=== PATIENT | female | born 1960 | race Caucasian/White ===

== ENCOUNTER 2017-07-21 15:07 | Emergency (ER) | payer OTHER ==
[~2017-07-21] VITALS: Ht 165.1 cm; Wt 65.0 kg
[2017-07-21 15:11] VITALS: BP 136/88; PULSE 103; RESP 20; TEMP 98; O2SAT 98
[2017-07-21 15:30] VITALS: O2SAT 99
[2017-07-21 15:47] LABS: AUTOMATED NEUTROPHIL # 5.5 TH/MM3 (1.8-7.7); BASOPHIL # 0.1 TH/MM3 (0-0.2); BASOPHIL % 0.8 % (0.0-2.0); EOSINOPHIL # 0.1 TH/MM3 (0-0.4); EOSINOPHIL % 1.5 % (0.0-4.0); HEMATOCRIT 41.5 % (35.0-46.0); HEMO FLAGS DIFF FINAL; LYMPH % 17.4 % (9.0-44.0); LYMPHOCYTE # 1.4 TH/MM3 (1.0-4.8); MEAN CELL VOLUME 88.1 FL (80.0-100.0); MEAN CORPUSCULAR HEMOGLOBIN 30.1 PG (27.0-34.0); MEAN CORPUSCULAR HGB CONC 34.2 % (32.0-36.0); MONO % 8.4 % (0.0-8.0); NEUT % 71.9 % (16.0-70.0); PLATELET COUNT 299 TH/MM3 (150-450); RED BLOOD COUNT 4.72 MIL/MM3 (4.00-5.30); WHITE BLOOD COUNT 7.8 TH/MM3 (4.0-11.0)
[2017-07-21 15:54] LABS: CHLORIDE 101 MEQ/L (98-107); POTASSIUM 3.4 MEQ/L (3.5-5.1); SODIUM (NA) 135 MEQ/L (136-145)
--- NOTE | 2017-07-21 15:55 | PD ---
HPI Chief Complaint: Abdominal Pain Time Seen by Provider: 15:52 Travel History International Travel<30 days: No Contact w/Intl Traveler<30days: No Traveled to known affect area: No History of Present Illness HPI patient is a 57-year-old female who was sent here by urgent care physician for concerns about gallbladder disease. The patient has been having intermittent abdominal pain nausea and vomiting since May of this year. She also endorses losing to dress sizes over the past few months which she attributes to starting a new job. The patient states she does not have a primary care physician and went to an urgent care facility today and she had an ultrasound this afternoon which showed that she had multiple lesions in her liver as well as dilated common bile duct and multiple stones suggestive of chronic cholecystitis. Patient was referred here emergently by the urgent care center for further evaluation. Patient has not had a checkup in many years. Patient states symptoms on and off all summer but she started having severe nausea 4 days ago which is been intermittent and currently she feels fairly well. Symptoms are moderate, intermittent, currently mild, present in her generalized abdomen. PFSH Past Medical History Medical History: Denies Significant Hx Influenza Vaccination: No ?: Not Menopausal: Yes Past Surgical History Surgical History: No Previous Surgery Social History Alcohol Use: Yes (OCASS WINE) Tobacco Use: No Substance Use: No Allergies-Medications (Allergen,Severity, Reaction): Coded Allergies: No Known Allergies (Unverified , 07/21/17) Reported Meds & Prescriptions Reported Meds & Active Scripts Active No Active Prescriptions or Reported Medications Review of Systems Except as stated in HPI: all other systems reviewed are Neg Physical Exam Narrative GENERAL: Well-developed well-nourished in no obvious distress, appears older than stated age. SKIN: Focused skin assessment warm/dry. HEAD: Atraumatic. Normocephalic. EYES: Pupils equal and round. No scleral icterus. No injection or drainage. ENT: No nasal bleeding or discharge. Mucous membranes pink and moist. NECK: Trachea midline. No JVD. CARDIOVASCULAR: Regular rate and rhythm. No murmur appreciated. RESPIRATORY: No accessory muscle use. Clear to auscultation. Breath sounds equal bilaterally. GASTROINTESTINAL: Abdomen soft, non-tender, nondistended. Hepatic and splenic margins not palpable. No rebound no percussive tenderness, White sign negative. MUSCULOSKELETAL: No obvious deformities. No clubbing. No cyanosis. No edema. NEUROLOGICAL: Awake and alert. No obvious cranial nerve deficits. Motor grossly within normal limits. Normal speech. PSYCHIATRIC: Appropriate mood and affect; insight and judgment normal. Data Data Last Documented VS Vital Signs Date Time Temp Pulse Resp B/P (MAP) Pulse Ox O2 Delivery O2 Flow Rate FiO2 07/21/17 15:30 99 Room Air 07/21/17 15:11 98.0 103 20 136/88 (104) Orders Orders Complete Blood Count With Diff (07/21/17) Comprehensive Metabolic Panel (07/21/17) Lipase (07/21/17) Prothrombin Time / Inr (Pt) (07/21/17) Act Partial Throm Time (Ptt) (07/21/17) Urinalysis - C+S If Indicated (07/21/17) Iv Access Insert/Monitor (07/21/17) Ecg Monitoring (07/21/17) Oximetry (07/21/17) Electrocardiogram (07/21/17) Labs Laboratory Tests Test 07/21/17 15:41 White Blood Count 7.8 TH/MM3 Red Blood Count 4.72 MIL/MM3 Hemoglobin 14.2 GM/DL Hematocrit 41.5 % Mean Corpuscular Volume 88.1 FL Mean Corpuscular Hemoglobin 30.1 PG Mean Corpuscular Hemoglobin Concent 34.2 % Red Cell Distribution Width 13.0 % Platelet Count 299 TH/MM3 Mean Platelet Volume 7.2 FL Neutrophils (%) (Auto) 71.9 % Lymphocytes (%) (Auto) 17.4 % Monocytes (%) (Auto) 8.4 % Eosinophils (%) (Auto) 1.5 % Basophils (%) (Auto) 0.8 % Neutrophils # (Auto) 5.5 TH/MM3 Lymphocytes # (Auto) 1.4 TH/MM3 Monocytes # (Auto) 0.7 TH/MM3 Eosinophils # (Auto) 0.1 TH/MM3 Basophils # (Auto) 0.1 TH/MM3 CBC Comment DIFF FINAL Differential Comment MDM Medical Decision Making Medical Screen Exam Complete: Yes Emergency Medical Condition: Yes Differential Diagnosis Chronic cholecystitis, nausea, abdominal pain, dehydration, pancreatitis, abdominal malignancy. Narrative Course Patient roomed emerged permit, offered pain medicine and declined, she appears well in no distress. Basic labs and CAT scan of her abdomen was ordered, will be discussed with Dr. Pennington to follow-up workup and disposition the patient appropriately. Scripts No Active Prescriptions or Reported Meds Ned Mo MD Jul 21, 2017 15:55
[2017-07-21 15:58] LABS: ANION GAP 10 MEQ/L (5-15); BICARBONATE 24.5 MEQ/L (21.0-32.0); BLOOD UREA NITROGEN 11 MG/DL (7-18)
[2017-07-21 15:59] LABS: APTT (PATIENT) 26.6 SEC (24.3-30.1); PROTHROMBIN TIME - PATIENT 10.6 SEC (9.8-11.6)
[2017-07-21 16:01] LABS: ALT (GPT) 52 U/L (10-53); AST (GOT) 38 U/L (15-37); GLOMERULAR FILTRATION RATE 57 ML/MIN (>89)
[2017-07-21 16:02] LABS: TOTAL BILIRUBIN ADULT 0.5 MG/DL (0.2-1.0)
[2017-07-21 16:04] LABS: ALKALINE PHOSPHATASE 240 U/L (45-117)
[2017-07-21 17:04] LABS: GLUCOSE,URINE NEG (NEG); KETONE, URINE TRACE mg/dL (NEG); NITRITE,URINE NEG (NEG)
[2017-07-21 17:08] LABS: BLOOD, URINE TRACE (NEG)
--- NOTE | 2017-07-21 17:08 | RADRPT ---
EXAM DATE/TIME: 07/21/2017 16:43 [facility] COMPARISON: No previous studies available for comparison. INDICATIONS : Intermittent right upper quadrant pain and nausea x 2 months. ORAL CONTRAST: No oral contrast ingested. RADIATION DOSE: 7.25 CTDIvol (mGy) MEDICAL HISTORY : None SURGICAL HISTORY : None. ENCOUNTER: Initial ACUITY: 2 months PAIN SCALE: 5/10 LOCATION: Right upper quadrant TECHNIQUE: Volumetric scanning of the abdomen and pelvis was performed. Using automated exposure control and ad justment of the mA and/or kV according to patient size, radiation dose was kept as low as reasonably achievable to obtain optimal diagnostic quality images. DICOM format image data is available electro nically for review and comparison. FINDINGS: LOWER LUNGS: 4 mm nodule is identified in the right lower lobe. The visualized lower lungs are otherwise clear. LIVER: Multiple hypodense lesions are identified the liver ranging in size up to 2 cm. There is no evidence of biliary duct dilatation. Calcified stones are identified in the gallbladder. The distal common yasmani e duct is dilated measuring 9.7 mm. SPLEEN: Normal size without lesion. PANCREAS: Within normal limits. KIDNEYS: Normal in size and shape. There is no mass, stone, or hydronephrosis. ADRENAL GLANDS: Within normal limits. VASCULAR: There is no aortic aneurysm. BOWEL/MESENTERY: Multiple diverticula noted throughout the sigmoid colon. The stomach, small bowel, and colon demonstr ate no acute abnormality. There is no free intraperitoneal air. ABDOMINAL WALL: Within normal limits. RETROPERITONEUM: There is no lymphadenopathy. BLADDER: No wall thickening or mass. REPRODUCTIVE: 1.5 cm cyst is identified in the left adnexa. Small amount of free fluid is seen in the pelvis. INGUINAL: There is no lymphadenopathy or hernia. MUSCULOSKELETAL: Within normal limits for patient age. CONCLUSION: 1. Multiple low density hepatic lesions characteristic of metastatic disease. 2. Cholelithiasis with dilated common bile duct 3. 4 mm right lower lobe nodule 4. Uncomplicated colonic diverticulosis Gagan Hdez MD on July 21, 2017 at 16:59 Board Certified Radiologist. This report was verified electronically.
[2017-07-21 17:09] LABS: MUCUS URINE MANY /lpf (OCC); RBC, URINE 0-3 /hpf (0-3); URINE COLOR YELLOW (YELLW/STRAW)
[2017-07-21 17:10] LABS: COMMENT (UR) CULT NOT INDICATED; CULTURE IF INDICATED CULT NOT INDICATED; SQUAMOUS EPITHELIAL CELL URINE 0-5 /hpf (0-5)
--- NOTE | 2017-07-21 17:18 | PD ---
Physical Exam Date Seen by Provider: Jul 21, 2017 Narrative Care was assumed from Dr. Mo at 4 PM pending further evaluation of abdominal pain. The patient reported abdominal pain which started in May. The pain has waxed and waned. She has developed nausea for the last 4 days. She did not have a primary care provider so presented herself to an urgent care center where she had an outpatient ultrasound. The outpatient ultrasound did show gallstones but also showed old other lesions in her liver. She was subsequently sent here for further evaluation. Data Data Last Documented VS Vital Signs Date Time Temp Pulse Resp B/P (MAP) Pulse Ox O2 Delivery O2 Flow Rate FiO2 07/21/17 15:30 99 Room Air 07/21/17 15:11 98.0 103 20 136/88 (104) Orders Orders Complete Blood Count With Diff (07/21/17:22) Comprehensive Metabolic Panel (07/21/17:22) Lipase (07/21/17:22) Prothrombin Time / Inr (Pt) (07/21/17:) Act Partial Throm Time (Ptt) (07/21/17:22) Urinalysis - C+S If Indicated (07/21/17 15:22) Iv Access Insert/Monitor (07/21/17 15:22) Ecg Monitoring (07/21/17:) Oximetry (07/21/17:) Electrocardiogram (07/21/17 15:22) Ct Abd/Pel W/O Iv Contrast (07/21/17 16:28) Labs Laboratory Tests Test 07/21/17 15:41 07/21/17 16:58 White Blood Count 7.8 TH/MM3 Red Blood Count 4.72 MIL/MM3 Hemoglobin 14.2 GM/DL Hematocrit 41.5 % Mean Corpuscular Volume 88.1 FL Mean Corpuscular Hemoglobin 30.1 PG Mean Corpuscular Hemoglobin Concent 34.2 % Red Cell Distribution Width 13.0 % Platelet Count 299 TH/MM3 Mean Platelet Volume 7.2 FL Neutrophils (%) (Auto) 71.9 % Lymphocytes (%) (Auto) 17.4 % Monocytes (%) (Auto) 8.4 % Eosinophils (%) (Auto) 1.5 % Basophils (%) (Auto) 0.8 % Neutrophils # (Auto) 5.5 TH/MM3 Lymphocytes # (Auto) 1.4 TH/MM3 Monocytes # (Auto) 0.7 TH/MM3 Eosinophils # (Auto) 0.1 TH/MM3 Basophils # (Auto) 0.1 TH/MM3 CBC Comment DIFF FINAL Differential Comment Prothrombin Time 10.6 SEC Prothromb Time International Ratio 1.0 RATIO Activated Partial Thromboplast Time 26.6 SEC Blood Urea Nitrogen 11 MG/DL Creatinine 1.00 MG/DL Random Glucose 109 MG/DL Total Protein 7.3 GM/DL Albumin 3.5 GM/DL Calcium Level 9.2 MG/DL Alkaline Phosphatase 240 U/L Aspartate Amino Transf (AST/SGOT) 38 U/L Alanine Aminotransferase (ALT/SGPT) 52 U/L Total Bilirubin 0.5 MG/DL Sodium Level 135 MEQ/L Potassium Level 3.4 MEQ/L Chloride Level 101 MEQ/L Carbon Dioxide Level 24.5 MEQ/L Anion Gap 10 MEQ/L Estimat Glomerular Filtration Rate 57 ML/MIN Lipase 130 U/L Urine Color YELLOW Urine Turbidity CLEAR Urine pH 6.0 Urine Specific [place] 1.025 Urine Protein NEG mg/dL Urine Glucose (UA) NEG mg/dL Urine Ketones TRACE mg/dL Urine Occult Blood TRACE Urine Nitrite NEG Urine Bilirubin NEG Urine Leukocyte Esterase TRACE Urine RBC 0-3 /hpf Urine WBC 3-5 /hpf Urine Squamous Epithelial Cells 0-5 /hpf Urine Mucus MANY /lpf Microscopic Urinalysis Comment CULT NOT INDICATED MDM Supervised Visit with CYNTHIA: No Narrative Course CT abd/pelvis: 1. Multiple low density hepatic lesions characteristic of metastatic disease. 2. Cholelithiasis with dilated common bile duct 3. 4 mm right lower lobe nodule 4. Uncomplicated colonic diverticulosis CBC & BMP Diagram 07/21/17 15:41 Total Protein 7.3, Albumin 3.5, Calcium Level 9.2, Alkaline Phosphatase 240 H, Aspartate Amino Transf (AST/SGOT) 38 H, Alanine Aminotransferase (ALT/SGPT) 52, Total Bilirubin 0.5 UA neg for infection. This patient does not meet any criteria for inpatient evaluation. This patient has no primary care provider. She has no insurance. She will be referred to the [facility] for outpatient workup. I will place a mandatory referral to oncology and will also give her a referral to surgery. Diagnosis Primary Impression: Cholelithiasis Qualified Codes: K80.10 - Calculus of gallbladder with chronic cholecystitis without obstruction Additional Impression: Lesion of liver Referrals: Ajay Maddox MD 1 week [facility] 1 week Oncologist 1 week Patient Instructions: Cholecystitis (DC), General Instructions, Liver Cancer ( DC) Med/Other Pt SpecificInfo: Prescription(s) given Scripts Ondansetron (Zofran) 4 Mg Tab 4 MG PO Q6HR Y for NAUSEA OR VOMITING, #10 TAB 0 Refills Prov: Loren Pennington MD 07/21/17 Disposition: 01 DISCHARGE HOME Condition: Stable Lroen Pennington MD Jul 21, 2017 17:18
[2017-07-21] MEDS ORDERED: ZOFR4TAB PO (17:20)
[2017-07-21 17:37] VITALS: BP 142/86; PULSE 80; RESP 18; O2SAT 97
--- NOTE | 2017-07-21 18:45 | EKG ---
Date Performed: 07/21/2017 Time Performed: 15:30:34 PTAGE: 57 years EKG: Sinus rhythm NORMAL ECG NO PREVIOUS TRACING DOCTOR: Jaiden Cr Interpretating Date/Time 07/21/2017 18:43:28
== END 2017-07-21 18:00 | disposition home or self-care (01) ==
LOC: PHED 15:07
DX: K80.10 Calculus of gallbladder with chronic cholecystitis without obstruction (principal); K76.9 Liver disease, unspecified; R91.1 Solitary pulmonary nodule; K57.90 Diverticulosis of intestine, part unspecified, without perforation or abscess without bleeding
CPT/HCPCS: 74176; 80053; 81001; 83690; 85025; 85610; 85730; 93005

== ENCOUNTER 2017-08-18 23:57 | Inpatient (IN) | payer OTHER ==
[~2017-08-18] VITALS: Ht 165.1 cm; Wt 67.6 kg
[~2017-08-18 23:57] MED LIST: ZOFR4TAB PO
[2017-08-19] VITALS (13 sets, daily range): BP systolic 110–188; BP diastolic 71–99; PULSE 85–111; RESP 16–22; TEMP 96.9–98.1; O2SAT 96–100
[2017-08-19] MEDS ORDERED: SODIUM CHLORIDE 0.9% FLUSH 10 ML FLUSH IV FLUSH PRN ×2 (02:15→03:45)
[2017-08-19 02:38] LABS: AUTOMATED NEUTROPHIL # 6.8 TH/MM3 (1.8-7.7); BASOPHIL # 0.1 TH/MM3 (0-0.2); BASOPHIL % 0.6 % (0.0-2.0); BLOOD, URINE TRACE (NEG); EOSINOPHIL # 0.1 TH/MM3 (0-0.4); EOSINOPHIL % 1.1 % (0.0-4.0); GLUCOSE,URINE NEG (NEG); HEMATOCRIT 44.5 % (35.0-46.0); KETONE, URINE 40 mg/dL (NEG); LYMPH % 15.5 % (9.0-44.0); LYMPHOCYTE # 1.4 TH/MM3 (1.0-4.8); MEAN CELL VOLUME 87.7 FL (80.0-100.0); MEAN CORPUSCULAR HEMOGLOBIN 29.3 PG (27.0-34.0); MEAN CORPUSCULAR HGB CONC 33.3 % (32.0-36.0); MONO % 7.6 % (0.0-8.0); NEUT % 75.2 % (16.0-70.0); NITRITE,URINE NEG (NEG); PH, URINE 5.5 (5.0-8.5); PLATELET COUNT 392 TH/MM3 (150-450); RED BLOOD COUNT 5.08 MIL/MM3 (4.00-5.30); RED CELL DISTRIBUTION WIDTH 12.3 % (11.6-17.2); WHITE BLOOD COUNT 9.1 TH/MM3 (4.0-11.0)
[2017-08-19 02:44] LABS: URINE COLOR YELLOW (YELLW/STRAW)
[2017-08-19 02:45] LABS: COMMENT (UR) CULT NOT INDICATED; COMMENT2 (UR) MUCOUS PRESENT; CULTURE IF INDICATED CULT NOT INDICATED; RBC, URINE 0-3 /hpf (0-3); SQUAMOUS EPITHELIAL CELL URINE 0-5 /hpf (0-5); WBC, URINE 0-2 /hpf (0-5)
[2017-08-19] MEDS ORDERED: IOHEXOL 350 MG/ML 10 ML VIAL (for RAD DIAG) IVCONTRAST ONE (02:45)
[2017-08-19 02:46] LABS: CHLORIDE 98 MEQ/L (98-107); POTASSIUM 3.7 MEQ/L (3.5-5.1); SODIUM (NA) 132 MEQ/L (136-145)
[2017-08-19 02:50] LABS: ANION GAP 9 MEQ/L (5-15); BICARBONATE 25.5 MEQ/L (21.0-32.0); BLOOD UREA NITROGEN 11 MG/DL (7-18); HEMO FLAGS DIFF FINAL
[2017-08-19 02:53] LABS: ALT (GPT) 59 U/L (10-53); AST (GOT) 47 U/L (15-37); GLOMERULAR FILTRATION RATE 62 ML/MIN (>89)
[2017-08-19 02:54] LABS: TOTAL BILIRUBIN ADULT 0.8 MG/DL (0.2-1.0)
[2017-08-19 02:56] LABS: ALKALINE PHOSPHATASE 430 U/L (45-117)
--- NOTE | 2017-08-19 02:59 | RADRPT ---
EXAM DATE/TIME: 08/19/2017 02:30 [facility] COMPARISON: CT ABDOMEN & PELVIS W/O CONTRAST, July 21, 2017, 16:43. INDICATIONS : Abdominal pain and vomiting X one month IV CONTRAST: 95 cc Omnipaque 350 (iohexol) IV ORAL CONTRAST: No oral contrast ingested. RADIATION DOSE: 5.71 CTDIvol (mGy) MEDICAL HISTORY : None SURGICAL HISTORY : None. ENCOUNTER: Initial ACUITY: 1 month PAIN SCALE: 7/10 LOCATION: abdomen TECHNIQUE: Volumetric scanning of the abdomen and pelvis was performed. Using automated exposure control and ad justment of the mA and/or kV according to patient size, radiation dose was kept as low as reasonably achievable to obtain optimal diagnostic quality images. DICOM format image data is available electro nically for review and comparison. FINDINGS: There is a 4 mm nodule in the right lower lobe. No pleural effusions are identified. There is widespr ead metastatic disease throughout all segments of the liver the largest measuring 4 cm in segment 6. The spleen is normal in size and free of focal defects. There are multiple stones within the gallblad scout without wall thickening or pericholecystic fluid the largest measuring 12 mm. The pancreas demons trates no evidence of mass and there is no dilatation of the pancreatic duct. The right adrenal gland is unremarkable. There is a 1 cm nodule in the left adrenal gland characteristic of metastatic disea se. The kidneys are normal bilaterally without evidence of mass or hydronephrosis. Examination of the pelvis demonstrates no evidence of free fluid or pelvic mass. No abnormally enlarg ed inguinal or retroperitoneal lymph nodes are present. The bladder is unremarkable. 15 mm left ovari an cyst is present. CONCLUSION: 1. Widespread hepatic metastatic disease. No acute process is identified. 2. Cholelithiasis Shaquille Vaz MD on August 19, 2017 at 2:48 Board Certified Radiologist. This report was verified electronically.
--- NOTE | 2017-08-19 03:37 | PD ---
HPI Chief Complaint: Abdominal Pain Time Seen by Provider: 02:00 Travel History International Travel<30 days: No Contact w/Intl Traveler<30days: No Traveled to known affect area: No History of Present Illness HPI The patient is a 57-year-old female that has been complaining of vomiting and upper abdominal pain for one month. Patient last month had a CT scan that showed gallstones and suspicious lesions in the liver that may be metastatic lesions. The patient tried to follow-up with her oncologist but states she has never received a call back from the oncology new patient referral. She comes in [facility] for increasing abdominal pain and vomiting. The pain is in the right upper quadrant and midline epigastrium. Her pain as a 7/10 and sharp pain. PFSH Past Medical History Influenza Vaccination: No ?: Not Menopausal: Yes Past Surgical History Other Surgery: Yes (Cyst removal) Social History Alcohol Use: Yes (OCASS WINE) Tobacco Use: No Substance Use: No Allergies-Medications (Allergen,Severity, Reaction): Coded Allergies: No Known Allergies (Verified Adverse Reaction, Unknown, 08/19/17) Reported Meds & Prescriptions Reported Meds & Active Scripts Active Zofran (Ondansetron HCl) 4 Mg Tab 4 Mg PO Q6HR PRN Review of Systems Except as stated in HPI: all other systems reviewed are Neg Physical Exam Narrative GENERAL: The patient is alert, oriented 3 in moderate apparent distress with her abdominal discomfort. She appears slightly dehydrated. Her vital signs show heart rate of 111 and respirations of 22 but otherwise normal. SKIN: Focused skin assessment warm/dry. HEAD: Atraumatic. Normocephalic. EYES: Pupils equal and round. No scleral icterus. No injection or drainage. ENT: No nasal bleeding or discharge. Mucous membranes pink and moist. NECK: Trachea midline. No JVD. CARDIOVASCULAR: Regular rate and rhythm. No murmur appreciated. RESPIRATORY: No accessory muscle use. Clear to auscultation. Breath sounds equal bilaterally. GASTROINTESTINAL: Abdomen soft, with tenderness to direct palpation in the right upper quadrant, nondistended. Hepatic margin is about 8 cm below the right costal margin and tender. Splenic margins not palpable. MUSCULOSKELETAL: No obvious deformities. No clubbing. No cyanosis. No edema. NEUROLOGICAL: Awake and alert. No obvious cranial nerve deficits. Motor grossly within normal limits. Normal speech. PSYCHIATRIC: Appropriate mood and affect; insight and judgment normal. Data Data Last Documented VS Vital Signs Date Time Temp Pulse Resp B/P (MAP) Pulse Ox O2 Delivery O2 Flow Rate FiO2 08/19/17 02:29 22 97 Room Air 08/19/17 00:45 97.9 111 Orders Orders Complete Blood Count With Diff (08/19/17 02:10) Comprehensive Metabolic Panel (08/19/17 02:10) Lipase (08/19/17 02:10) Urinalysis - C+S If Indicated (08/19/17 02:10) Ct Abd/Pel W Iv Contrast(Rout) (08/19/17 02:10) Iv Access Insert/Monitor (08/19/17 02:10) Ecg Monitoring (08/19/17 02:10) Oximetry (08/19/17 02:10) Sodium Chloride 0.9% Flush (Ns Flush) (08/19/17 02:15) Iohexol 350 Inj (Omnipaque 350 Inj) (08/19/17 02:45) Place In Observation (08/19/17 ) Vital Signs (Adult) Q4H (08/19/17 03:41) Activity Oob Ad Mili (08/19/17 03:41) Diet Regular Basic (08/19/17 Breakfast) Sodium Chloride 0.9% Flush (Ns Flush) (08/19/17 03:45) Sodium Chloride 0.9% Flush (Ns Flush) (08/19/17 09:00) Ondansetron Inj (Zofran Inj) (08/19/17 03:45) Comprehensive Metabolic Panel (08/20/17 06:00) Complete Blood Count With Diff (08/20/17 06:00) Scd Bilateral/Knee High SANJUANA.BID (08/19/17 03:41) Jun Bilateral/Knee High SANJUANA.QSHIFT (08/19/17 03:43) Acetaminophen (Tylenol) (08/19/17 03:45) Morphine Inj (Morphine Inj) (08/19/17 03:45) Oxycodone (Roxicodone) (08/19/17 03:45) Docusate Sodium-Senna (Shereen-Colace) (08/19/17 09:00) Magnesium Hydroxide Liq (Milk Of Magnesi (08/19/17 03:45) Sennosides (Senokot) (08/19/17 03:45) Bisacodyl Supp (Dulcolax Supp) (08/19/17 03:45) Lactulose Liq (Lactulose Liq) (08/19/17 03:45) Morphine Inj (Morphine Inj) (08/19/17 03:45) Ondansetron Inj (Zofran Inj) (08/19/17 03:45) Consult Medical Oncology (08/19/17 ) Labs Laboratory Tests Test 08/19/17 02:30 White Blood Count 9.1 TH/MM3 Red Blood Count 5.08 MIL/MM3 Hemoglobin 14.9 GM/DL Hematocrit 44.5 % Mean Corpuscular Volume 87.7 FL Mean Corpuscular Hemoglobin 29.3 PG Mean Corpuscular Hemoglobin Concent 33.3 % Red Cell Distribution Width 12.3 % Platelet Count 392 TH/MM3 Mean Platelet Volume 7.1 FL Neutrophils (%) (Auto) 75.2 % Lymphocytes (%) (Auto) 15.5 % Monocytes (%) (Auto) 7.6 % Eosinophils (%) (Auto) 1.1 % Basophils (%) (Auto) 0.6 % Neutrophils # (Auto) 6.8 TH/MM3 Lymphocytes # (Auto) 1.4 TH/MM3 Monocytes # (Auto) 0.7 TH/MM3 Eosinophils # (Auto) 0.1 TH/MM3 Basophils # (Auto) 0.1 TH/MM3 CBC Comment DIFF FINAL Differential Comment Urine Color YELLOW Urine Turbidity CLEAR Urine pH 5.5 Urine Specific [place] 1.023 Urine Protein NEG mg/dL Urine Glucose (UA) NEG mg/dL Urine Ketones 40 mg/dL Urine Occult Blood TRACE Urine Nitrite NEG Urine Bilirubin NEG Urine Leukocyte Esterase NEG Urine RBC 0-3 /hpf Urine WBC 0-2 /hpf Urine Squamous Epithelial Cells 0-5 /hpf Urine Bacteria NONE /hpf Microscopic Urinalysis Comment CULT NOT INDICATED Blood Urea Nitrogen 11 MG/DL Creatinine 0.93 MG/DL Random Glucose 96 MG/DL Total Protein 7.9 GM/DL Albumin 3.6 GM/DL Calcium Level 9.4 MG/DL Alkaline Phosphatase 430 U/L Aspartate Amino Transf (AST/SGOT) 47 U/L Alanine Aminotransferase (ALT/SGPT) 59 U/L Total Bilirubin 0.8 MG/DL Sodium Level 132 MEQ/L Potassium Level 3.7 MEQ/L Chloride Level 98 MEQ/L Carbon Dioxide Level 25.5 MEQ/L Anion Gap 9 MEQ/L Estimat Glomerular Filtration Rate 62 ML/MIN Lipase 120 U/L MDM Medical Decision Making Medical Screen Exam Complete: Yes Emergency Medical Condition: Yes Medical Record Reviewed: Yes Interpretation(s) The CBC is normal. The complete metabolic profile shows a GFR of 62, alkaline phosphatase 430, GOT 47 and ALT 59 with a sodium of 132. The lipase is normal. The CT abdomen pelvis shows widespread hepatic metastatic disease, this is gotten considerably worse in the last month. All the hepatic enzymes have increased since the of last month. Differential Diagnosis Cholelithiasis, metastatic disease, electrolyte disorder, intractable pain, intractable vomiting, dehydration Narrative Course The patient has had problems getting an oncologist. In the last month her metastatic lesions in the liver have gotten larger and she has become more symptomatic. All of her liver enzymes have increased. She does appear somewhat dehydrated now. The CT scan particular shows much worsening of these lesions. Impression: Metastatic disease of the liver with intractable pain Physician Communication Physician Communication I discussed the patient with Dr. Mercedes. Diagnosis Primary Impression: Intractable abdominal pain Additional Impression: Metastatic carcinoma to liver Admitting Information Admitting Physician Requests: Admit Yadiel Matt MD Aug 19, 2017 03:37
[2017-08-19] MEDS ORDERED: SENNOSIDES 8.6 MG TAB PO PRN (03:45)
[2017-08-19] MEDS ORDERED: LACTULOSE SYRUP 20 GM/30 ML CUP PO PRN (03:45)
[2017-08-19] MEDS ORDERED: MORPHINE SULFATE 4 MG/ML INJ IV PUSH ONE (03:45)
[2017-08-19] MEDS ORDERED: MORPHINE SULFATE 4 MG/ML INJ IV PUSH PRN (03:45)
[2017-08-19] MEDS ORDERED: ONDANSETRON HCL 4 MG/2 ML VIAL IVP PRN (03:45)
[2017-08-19] MEDS ORDERED: BISACODYL 10 MG SUPP RECTAL PRN (03:45)
[2017-08-19] MEDS ORDERED: ACETAMINOPHEN 325 MG TAB PO PRN (03:45)
[2017-08-19] MEDS ORDERED: ONDANSETRON HCL 4 MG/2 ML VIAL IV ONE (03:45)
[2017-08-19] MEDS ORDERED: MAGNESIUM HYDROXIDE SUSP 30 ML CUP PO PRN (03:45)
[2017-08-19] MEDS ORDERED: MORPHINE SULFATE 2 MG/ML INJ IV PUSH PRN (04:00)
[2017-08-19] MEDS ORDERED: DOCUSATE SODIUM 50 MG/SENNA 8.6 MG TAB PO ONE (10:00)
[2017-08-19] MEDS ORDERED: MAGNESIUM HYDROXIDE SUSP 30 ML CUP PO ONE (10:00)
[2017-08-19] MEDS: SODIUM CHLORIDE 0.9% FLUSH 10 ML FLUSH IV FLUSH SCH ×2 (10:01→20:04)
[2017-08-19] MEDS: DOCUSATE SODIUM 50 MG/SENNA 8.6 MG TAB PO SCH ×2 (10:01→20:05)
[2017-08-19 11:07] LABS: PROTHROMBIN TIME - PATIENT 10.7 SEC (9.8-11.6)
[2017-08-19 13:21] LABS: AUTOMATED NEUTROPHIL # 5.6 TH/MM3 (1.8-7.7); BASOPHIL % 0.4 % (0.0-2.0); EOSINOPHIL # 0.1 TH/MM3 (0-0.4); EOSINOPHIL % 1.4 % (0.0-4.0); HEMATOCRIT 43.9 % (35.0-46.0); HEMO FLAGS DIFF FINAL; LYMPH % 18.8 % (9.0-44.0); LYMPHOCYTE # 1.5 TH/MM3 (1.0-4.8); MEAN CELL VOLUME 87.8 FL (80.0-100.0); MEAN CORPUSCULAR HEMOGLOBIN 28.9 PG (27.0-34.0); MEAN CORPUSCULAR HGB CONC 32.8 % (32.0-36.0); MONO % 9.5 % (0.0-8.0); NEUT % 69.9 % (16.0-70.0); PLATELET COUNT 369 TH/MM3 (150-450); RED CELL DISTRIBUTION WIDTH 12.5 % (11.6-17.2)
[2017-08-19 13:38] LABS: APTT (PATIENT) 28.7 SEC (24.3-30.1)
--- NOTE | 2017-08-19 15:34 | HHI.HP ---
[facility]Staff Admission Diagnosis intractable pain, metastatic liver disease Diagnoses: (1) Metastatic carcinoma to liver Diagnosis: Principal Chief Complaint: Abdominal pain, nausea vomiting Travel History International Travel<30 Days: No Contact w/Intl Traveler <30 Da: No Traveled to Known Affected Are: No History of Present Illness Written by Matt Matt, acting as scribe for Dr. Sahni on 08/19/17 at 15 :23. 57-year-old female with known history of recently diagnosed metastatic liver lesions who presented to hospital because of persistent nausea , vomiting, abdominal pain. This is a rather unfortunate situation, the patient was seen on July 21, 2017 and the emergency department and was found to have metastatic liver lesions, chronic cholecystitis without obstruction. Patient was discharged from the ER with outpatient follow-up with the [facility] as well as mandatory referral to oncology and surgery. Patient has been unable to obtain appointment to oncology for evaluation of her metastatic liver lesions. She has had persistent abdominal pain, weight loss, continued nausea vomiting. She has had no relief of her symptoms and unable to follow-up in outpatient setting, so she returned to the ER for evaluation. Patient has CT scan done of the abdomen which indicated worsening of her metastatic liver lesions. Patient has had persistent abdominal pain that wraps around her right side into her back. She has had continue weight loss. Intermittent nausea vomiting. She vomited last night with green flakes in her vomitus. Because of those reasons it was recommended by ER physician that the patient be observed in the hospital for appropriate consults and management. Review of Systems Gastrointestinal: COMPLAINS OF: Abdominal pain, Nausea, Vomiting Except as stated in HPI: all other systems reviewed are Neg Past Family Social History Past Medical History No chronic medical illnesses Past Surgical History Cyst removed as a child Reported Medications Reported Meds & Active Scripts Active Zofran (Ondansetron HCl) 4 Mg Tab 4 Mg PO Q6HR PRN Allergies: Coded Allergies: No Known Allergies (Verified Allergy, Unknown, 08/19/17) Family History Reviewed is significant for mother at age 68 from cancer, unknown type , they indicate that she was found to have metastatic cancer and within 3 months. Mother also had diabetes Social History Patient states that she smoked when she was a teenager and quit when she was 19 years old. Does drink wine occasionally. Denies any illicit drugs Physical Exam Vital Signs Vital Signs Date Time Temp Pulse Resp B/P (MAP) Pulse Ox O2 Delivery O2 Flow Rate FiO2 08/19/17 12:00 98.1 94 18 121/76 (91) 96 08/19/17 08:00 97.8 92 18 132/71 (91) 99 08/19/17 05:11 87 18 144/94 (111) 98 08/19/17 05:10 97.8 85 20 133/99 (110) 98 08/19/17 04:17 18 08/19/17 03:53 91 20 134/92 (106) 99 Room Air 08/19/17 02:29 22 97 Room Air 08/19/17 02:15 90 20 136/93 (107) 96 Room Air 08/19/17 00:47 90 20 134/96 (109) 100 Room Air 08/19/17 00:45 97.9 111 20 117/83 (94) 99 08/19/17 00:45 20 08/19/17 00:16 97.9 90 22 188/98 (128) 97 08/19/17 00:09 97.9 111 22 117/83 (94) 99 Physical Exam GENERAL: Well-developed, well-nourished, in no acute distress. alert and orientated HEENT: Head is normocephalic without any lesions or masses noted. Facial features are symmetric. Eyes: Pupils equal round reactive to light. Extraocular muscles are intact. Conjunctivae were clear. Oropharyngeal: Pharynx without any erythema edema. Tongue is midline without deviation. Buccal mucosa is moist without any masses or lesions NECK: Supple without any masses. Trachea midline no deviation. No JVD, no bruits are appreciated CARDIAC: Regular rhythm, regular rate. S1/S2 are heard. No murmurs gallops or rubs. LUNGS: Clear to auscultation bilaterally. No wheeze, rhonchi or rales. No use of accessory muscles on inspiration or expiration. ABDOMEN: Soft, nontender. Nondistended. Bowel sounds heard in all 4 quadrants. No organomegaly or masses. Negative rebound, negative guarding EXTREMITIES: No edema, pulses are equal bilaterally. No cyanosis or clubbing NEUROLOGY: Mood mildly anxious and affect appear appropriate. Cranial nerves II through XII grossly intact. Muscle strength 5/5 in upper and lower extremities bilaterally. Deep tendon reflexes are 2+ in upper and lower extremities bilaterally. Laboratory Laboratory Tests Test 08/19/17 02:30 08/19/17 10:40 White Blood Count 9.1 8.0 Red Blood Count 5.08 5.00 Hemoglobin 14.9 14.4 Hematocrit 44.5 43.9 Mean Corpuscular Volume 87.7 87.8 Mean Corpuscular Hemoglobin 29.3 28.9 Mean Corpuscular Hemoglobin Concent 33.3 32.8 Red Cell Distribution Width 12.3 12.5 Platelet Count 392 369 Mean Platelet Volume 7.1 7.7 Neutrophils (%) (Auto) 75.2 69.9 Lymphocytes (%) (Auto) 15.5 18.8 Monocytes (%) (Auto) 7.6 9.5 Eosinophils (%) (Auto) 1.1 1.4 Basophils (%) (Auto) 0.6 0.4 Neutrophils # (Auto) 6.8 5.6 Lymphocytes # (Auto) 1.4 1.5 Monocytes # (Auto) 0.7 0.8 Eosinophils # (Auto) 0.1 0.1 Basophils # (Auto) 0.1 0.0 CBC Comment DIFF FINAL DIFF FINAL Differential Comment Urine Color YELLOW Urine Turbidity CLEAR Urine pH 5.5 Urine Specific [place] 1.023 Urine Protein NEG Urine Glucose (UA) NEG Urine Ketones 40 Urine Occult Blood TRACE Urine Nitrite NEG Urine Bilirubin NEG Urine Leukocyte Esterase NEG Urine RBC 0-3 Urine WBC 0-2 Urine Squamous Epithelial Cells 0-5 Urine Bacteria NONE Microscopic Urinalysis Comment CULT NOT INDICATED Blood Urea Nitrogen 11 Creatinine 0.93 Random Glucose 96 Total Protein 7.9 Albumin 3.6 Calcium Level 9.4 Alkaline Phosphatase 430 Aspartate Amino Transf (AST/SGOT) 47 Alanine Aminotransferase (ALT/SGPT) 59 Total Bilirubin 0.8 Sodium Level 132 Potassium Level 3.7 Chloride Level 98 Carbon Dioxide Level 25.5 Anion Gap 9 Estimat Glomerular Filtration Rate 62 Lipase 120 Prothrombin Time 10.7 Prothromb Time International Ratio 1.0 Activated Partial Thromboplast Time 28.7 Result Diagram: 08/19/17 1040 08/19/17 0230 Imaging Last Impressions Abdomen/Pelvis CT 08/19/17 0210 Signed Impressions: Service Date/Time: Saturday, August 19, 2017 02:30 - CONCLUSION: 1. Widespread hepatic metastatic disease. No acute process is identified. 2. Cholelithiasis MD Nicolas Cerda VTE Risk Assessment Nicolas VTE Risk Assessment: Mod/High Risk (score >= 2) Caprini Risk Assessment Model Point Value = 1 Point Value = 2 Point Value = 3 Point Value = 5 Age 41-60 Minor surgery BMI > 25 kg/m2 Swollen legs Varicose veins or History of unexplained or recurrent spontaneous Oral contraceptives or hormone replacement Sepsis (< 1 month) Serious lung disease, including pneumonia (< 1 month) Abnormal pulmonary function Acute myocardial infarction Congestive heart failure (< 1 month) History of inflammatory bowel disease Medical patient at bed rest Age 61-74 Arthroscopic surgery Major open surgery (> 45 min) Laparoscopic surgery (> 45 min) Malignancy Confined to bed (> 72 hours) Immobilizing plaster cast Central venous access Age >= 75 History of VTE Family history of VTE Factor V Leiden Prothrombin [id number] Lupus anticoagulant Anticardiolipin antibodies Elevated serum homocysteine Heparin-induced thrombocytopenia Other congenital or acquired thrombophilia Stroke (< 1 month) Elective arthroplasty Hip, pelvis, or leg fracture Acute spinal cord injury (< 1 month) Prophylaxis Regimen Total Risk Factor Score Risk Level Prophylaxis Regimen 0-1 Low Early ambulation 2 Moderate Order ONE of the following: *Sequential Compression Device (SCD) *Heparin 5000 units SQ BID 3-4 Higher Order ONE of the following medications: *Heparin 5000 units SQ TID *Enoxaparin/Lovenox 40 mg SQ daily (WT < 150 kg, CrCl > 30 mL/min) *Enoxaparin/Lovenox 30 mg SQ daily (WT < 150 kg, CrCl > 10-29 mL/min) *Enoxaparin/Lovenox 30 mg SQ BID (WT < 150 kg, CrCl > 30 mL/min) AND/OR *Sequential Compression Device (SCD) 5 or more Highest Order ONE of the following medications: *Heparin 5000 units SQ TID (Preferred with Epidurals) *Enoxaparin/Lovenox 40 mg SQ daily (WT < 150 kg, CrCl > 30 mL/min) *Enoxaparin/Lovenox 30 mg SQ daily (WT < 150 kg, CrCl > 10-29 mL/min) *Enoxaparin/Lovenox 30 mg SQ BID (WT < 150 kg, CrCl > 30 mL/min) AND *Sequential Compression Device (SCD) Assessment and Plan Assessment and Plan //Metastatic liver lesions //Abdominal pain //Nausea vomiting - CT scan does show significant metastatic disease in the liver and adrenal glands - Consulted interventional radiology for CT-guided biopsy of the liver lesion - Oncology was consulted who recommended CT scan of the chest - We'll also obtain tumor markers - Continue IV fluids - Continue antiemetics - Continue pain control - Patient with a counseled extensively on starting workup in the hospital with obtaining biopsy, pain control, oncology consultation and appropriate follow-up upon discharge //DVT prevention - Sequential compression devices Discussed Condition With Patient, oncologist, nursing staff, sister at bedside This note was transcribed by james Matt. I, Dr. Celso Sahni personally performed the history, physical exam, and medical decision making; and confirmed the accuracy of the information in the transcribed note. Authenticated by Dr. Celso Sahni on 08/20/17 at 16:40. Matt Matt Aug 19, 2017 15:34 Celso Sahni MD Aug 20, 2017 16:40
--- NOTE | 2017-08-19 18:28 | MB ---
cc: OLIMPIA FOOTE MD DATE OF CONSULTATION: 08/19/2017. REASON FOR CONSULTATION: Multiple liver hypodense lesions concerning for multifocal metastatic disease to the liver. REQUESTING PHYSICIAN: Consult requested by the hospitalist service. CHIEF COMPLAINT: 1. The patient reports a two month history of progressive fatigue and a one month history of increasing abdominal pain and discomfort. 2. Recurrent nausea and vomiting. HISTORY OF PRESENT ILLNESS: Ms. James is a 57-year-old female who reports being in her usual fair state of health up until May of 2017. She reports noticing a vague discomfort in her abdomen which involved the epigastric area and the left and right upper quadrants. She noticed the pain usually when she was standing or lifting objects. She reports noticing an indigestion as well which would result in vomiting. The frequency of vomiting would gradually increase over the next few weeks. Her pain changed from a discomfort to a sharp and burning type pain involving the upper abdomen. Her appetite decreased and she began to lose weight and she also had unintended weight loss. The patient presented to [facility] on July 21, 2017 with similar complaints. At that time, she underwent CT scan of the abdomen and pelvis which was recommended by the ER physician. She was found to have multiple low-density masses within the liver concerning for metastatic disease. She was recommended outpatient evaluation with oncology and was recommended outpatient image-guided biopsies. Due to her insurance status, she was not able to see an oncologist, she was working with [facility] Patient Assistance as well as social security for disability. Over the past 24 hours, her pain worsened and she elected to come back into [facility] for further workup and evaluation. She underwent repeat CT scan of abdomen and pelvis on 08/19/2017 and was found to have extensive hepatic metastatic disease. No definite primary site was identified. The oncology service has been asked to see her for further workup and management. PAST MEDICAL HISTORY: The patient denies any chronic medical comorbid conditions. PAST SURGICAL HISTORY: The patient denies any surgical interventions in her adult life. She does however report having undergone a benign cyst removal when she was an infant from her anterior chest. 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 She reports having had a remote history tobaccoism, she smoked when she was a teenager but has not smoked since her 20s. She denies alcohol. She is single. ALLERGIES: NO KNOWN DRUG ALLERGIES. CURRENT INPATIENT MEDICATIONS: 1. Tylenol 650 milligrams p.o. q. 6 hours. 2. Dulcolax 10 milligrams per rectum for severe constipation. 3. Lactulose 30 mL p.o. daily. 4. Magnesium hydroxide 30 mL p.o. q. 12 hours for constipation. 5. Morphine 2 milligrams IV q. 3 hours as needed for pain. 6. Zofran 4 milligrams IV q. 6 hours as needed for nausea and vomiting. 7. Oxycodone 5 milligrams p.o. q. 4 hours as needed for pain. 8. Senokot 17.2 milligrams p.o. q. 12 hours as needed for constipation. REVIEW OF SYSTEMS: A thirteen-point review of systems was obtained and the following are the pertinent positives: CONSTITUTIONAL: The patient reports loss of appetite, fatigue, weakness, unintended weight loss. HEAD, EYES, EARS, NOSE, THROAT: The patient denies headaches, blurry vision, difficulty swallowing, soreness in the throat. RESPIRATORY: Denies difficulty breathing, cough or hemoptysis. Denies angina-like chest pain, PND, orthopnea. She denies lower extremity swelling. BREASTS: Denies any breast lumps or bumps. UG: No complaints. Denies dysuria, hematuria or urinary incontinence. GASTROINTESTINAL: Reports nausea, vomiting. She reports noting blood-like flakes in her vomitus. She denies hematochezia or melena. She denies abdominal distention. HOME ECONOMICS EXPERT: No complaints. SKIN: No complaints. PHYSICAL EXAMINATION: VITAL SIGNS: Temperature 98.1 degrees Fahrenheit, heart rate 94 beats per minute, respiratory rate 18, blood pressure 121/76, 02 saturation is 96% on room air. GENERAL APPEARANCE: Ms. James is a middle-aged female. She is laying in bed. She appears to be no acute distress. HEAD, EYES, EARS, NOSE, THROAT: Head atraumatic, normocephalic, conjunctive are not pale. Sclerae are anicteric. Extraocular muscles intact. Pupils equal, round and reactive to light and accommodation. Oral exam - no pharyngeal erythema. NECK: No palpable cervical or supraclavicular lymphadenopathy. RESPIRATORY: Good air movement bilaterally over the upper, mid and lower lung zones without any added breath sounds. CARDIOVASCULAR: There is no evidence of murmurs, rubs or gallops. Her heart rate is regular and her rhythm is regular as well. ABDOMINAL EXAM: She has tenderness over the right upper quadrant. The liver is enlarged. Positive bowel sounds. No inguinal lymphadenopathy. LOWER EXTREMITIES: No pretibial edema or calf tenderness. BREAST EXAMINATION: Performed in the presence of a female nursing home physician, the patient was noted to have no skin changes over either breast. There were no masses palpable in either breast. There were no axillary lymph nodes palpable. LOWER EXTREMITIES: No pretibial edema or calf tenderness. HOME ECONOMICS EXPERT: No focal sensory or motor deficits. LABORATORY FINDINGS: Blood work dated 08/19/2017: White blood cell count 8, hemoglobin 14.4 grams/dL, hematocrit 44%, platelet count is 370,000, absolute neutrophil count is 5.6. Chemistry: Sodium 132, potassium is 3.7, chloride is 98, bicarbonate 25.5, BUN 11, creatinine is 0.93, eGFR is 56, total bilirubin 0.8, AST 57, ALT 59, alkaline phosphatase 490, LDH is pending, albumin is 3.6. AFP, CEA, CA 19-9, and CA-125 are pending at this time. IMAGING STUDIES: CT scan of the abdomen and pelvis dated 08/19/2017 with contrast indicates extensive widespread hepatic metastatic disease. Cholelithiasis was also noted. There was a 4 mm nodule in the right lower lobe as well. ASSESSMENT: Ms. James is a 57-year-old female with a three month history of progressive abdominal pain, nausea, loss of appetite, unintended weight loss and fatigue. She was found in mid July of 2017 to have multiple hypodense lesions within the liver concerning for metastatic disease when she presented to the [facility] Emergency Department complaining of abdominal pain. She was recommended outpatient evaluation by oncology for further diagnostic workup and management. She was unable to follow up due to her lack of insurance. Her symptoms unfortunately progressed and she therefore presented to [facility] for further workup and management. Repeat CT scan revealed persistent metastatic disease to the liver. She has now been admitted to the hospital and oncology has been asked to see her for further workup and management. RECOMMENDATIONS: 1. Request image-guided biopsy of one of the hepatic lesions to obtain tissue for pathologic evaluation. 2. Obtain CT scan of the thorax to rule out intrathoracic disease. 3. Request serum tumor markers, CEA, CA19-9 and alpha-fetoprotein. It is my suspicion she likely has an upper GI malignancy / hepatobiliary malignancy. I will also have her CT scan reviewed and evaluated by one of our radiologists to rule out a pancreatic mass. The oncology service will follow along with you. Thank you for allowing us to participate in the care of this patient. MD HEMA Ro/TROY /4:57 PM /6:06 PM
[2017-08-20] VITALS: BP 112/88; PULSE 88; RESP 16; TEMP 96.7; O2SAT 99
[2017-08-20] MEDS: DOCUSATE SODIUM 50 MG/SENNA 8.6 MG TAB PO SCH ×3 (07:21→21:30)
[2017-08-20 07:29] LABS: AUTOMATED NEUTROPHIL # 4.9 TH/MM3 (1.8-7.7); BASOPHIL # 0.1 TH/MM3 (0-0.2); BASOPHIL % 0.9 % (0.0-2.0); CHLORIDE 97 MEQ/L (98-107); EOSINOPHIL # 0.1 TH/MM3 (0-0.4); EOSINOPHIL % 1.8 % (0.0-4.0); HEMATOCRIT 41.5 % (35.0-46.0); HEMO FLAGS DIFF FINAL; LYMPH % 18.7 % (9.0-44.0); LYMPHOCYTE # 1.3 TH/MM3 (1.0-4.8); MEAN CELL VOLUME 88.4 FL (80.0-100.0); MEAN CORPUSCULAR HEMOGLOBIN 29.6 PG (27.0-34.0); MEAN CORPUSCULAR HGB CONC 33.5 % (32.0-36.0); MONO % 7.9 % (0.0-8.0); NEUT % 70.7 % (16.0-70.0); PLATELET COUNT 342 TH/MM3 (150-450); POTASSIUM 4.1 MEQ/L (3.5-5.1); RED CELL DISTRIBUTION WIDTH 12.5 % (11.6-17.2); SODIUM (NA) 133 MEQ/L (136-145)
[2017-08-20 07:36] LABS: ANION GAP 8 MEQ/L (5-15); BICARBONATE 28.3 MEQ/L (21.0-32.0); BLOOD UREA NITROGEN 12 MG/DL (7-18)
[2017-08-20 07:39] LABS: ALT (GPT) 112 U/L (10-53); AST (GOT) 80 U/L (15-37); GLOMERULAR FILTRATION RATE 70 ML/MIN (>89)
[2017-08-20 07:41] LABS: TOTAL BILIRUBIN ADULT 0.7 MG/DL (0.2-1.0)
[2017-08-20 07:42] LABS: ALKALINE PHOSPHATASE 516 U/L (45-117)
[2017-08-20] MEDS: SODIUM CHLORIDE 0.9% FLUSH 10 ML FLUSH IV FLUSH SCH ×2 (08:38→21:30)
[2017-08-20] MEDS ORDERED: IOHEXOL 350 MG/ML 10 ML VIAL (for RAD DIAG) IVCONTRAST ONE (08:45)
[2017-08-20 08:58] VITALS: BP 107/80; PULSE 100; RESP 16; TEMP 98; O2SAT 100
--- NOTE | 2017-08-20 09:15 | HHI.PR ---
Subjective Remarks Patient seen and examined today for follow-up on metastatic liver disease. Awaiting radiology to perform biopsy. Otherwise patient is doing well. Pain is controlled. Objective Vitals Vital Signs Date Time Temp Pulse Resp B/P (MAP) Pulse Ox O2 Delivery O2 Flow Rate FiO2 08/20/17 08:58 98.0 100 16 107/80 (89) 100 08/20/17 00:00 96.7 88 16 112/88 (96) 99 08/19/17 20:00 96.9 95 16 110/84 (93) 97 08/19/17 16:00 97.4 93 18 137/80 (99) 98 08/19/17 12:00 98.1 94 18 121/76 (91) 96 I/O 08/19/17 08/19/17 08/19/17 08/20/17 08/20/17 08/20/17 07:00 15:00 23:00 07:00 15:00 23:00 Intake Total 675 ml 280 ml Balance 675 ml 280 ml Intake Oral 675 ml 280 ml # Voids 3 1 # Bowel Movements 1 0 Result Diagram: 08/20/17 0700 08/20/17 0700 Objective Remarks GENERAL: Well-developed, well-nourished, in no acute distress. alert and orientated HEENT: Head is normocephalic without any lesions or masses noted. Facial features are symmetric. Eyes: Extraocular muscles are intact. Conjunctivae were clear. NECK: Supple without any masses. Trachea midline no deviation. No JVD, CARDIAC: Regular rhythm, regular rate. S1/S2 are heard. No murmurs gallops or rubs. LUNGS: Clear to auscultation bilaterally. No wheeze, rhonchi or rales. No use of accessory muscles on inspiration or expiration. ABDOMEN: Soft, nontender. Nondistended. Bowel sounds heard in all 4 quadrants. No organomegaly or masses. Negative rebound, negative guarding EXTREMITIES: No edema, pulses are equal bilaterally. No cyanosis or clubbing NEUROLOGY: Mood and affect appear appropriate. Cranial nerves II through XII grossly intact. Moving all extremities, speech is clear Urinary Catheter: No Vascular Central Line Catheter: No A/P Assessment and Plan Metastatic liver lesions CT scan does indicate significant metastatic disease to liver and adrenal glands Awaiting CT scan of the chest to evaluate for primary source Awaiting radiology to perform CT-guided biopsy for tissue identification Tumor markers were performed which that show negative AFP, CEA. However significantly elevated CA-15-3, CA-19-9, CA-125 Oncology consulted, awaiting tissue biopsy for further treatment Abdominal pain with Nausea vomiting, resolved Continue IV fluids as patient given IV contrast today Continue antiemetics Continue pain control Patient with a counseled extensively on starting workup in the hospital with obtaining biopsy, pain control, oncology consultation and appropriate follow-up upon discharge DVT prevention Sequential compression devices Discharge Planning Discharge home after biopsy performed by radiology Matt Matt Aug 20, 2017 09:15
--- NOTE | 2017-08-20 09:43 | RADRPT ---
EXAM DATE/TIME: 08/20/2017 08:39 [place] COMPARISON: No previous studies available for comparison. INDICATIONS : Multiple liver lesions. Evaluate for metastatic disease. IV CONTRAST: 75 cc Omnipaque 350 (iohexol) IV RADIATION DOSE: 6.43 CTDIvol (mGy) MEDICAL HISTORY : None SURGICAL HISTORY : None. ENCOUNTER: Initial ACUITY: 1 day PAIN SCALE: 0/10 LOCATION: chest TECHNIQUE: Volumetric scanning of the chest was performed. Using automated exposure control and adjustment of t he mA and/or kV according to patient size, radiation dose was kept as low as reasonably achievable to obtain optimal diagnostic quality images. DICOM format image data is available electronically for review and comparison. Follow-up recommendations for detected pulmonary nodules are based at a minimum on nodule size and pa tient risk factors according to Fleischner Society Guidelines. FINDINGS: LUNGS: Multiple small nodules are identified in the lungs predominantly on the right ranging in size from 3- 4 mm. Several are located along the interlobar fissure and likely represent small lymph nodes. PLEURA: There is no pleural thickening or pleural effusion. MEDIASTINUM: The heart and great vessels demonstrate no acute abnormality. There is no mediastinal or hilar lymph adenopathy. AXILLAE: Within normal limits. No lymphadenopathy. SKELETAL: Within normal limits for patient age. MISCELLANEOUS: Multiple focal lesions are seen throughout the liver. Calcified gallstones are noted. CONCLUSION: 1. Multiple 3-4 mm pulmonary nodules several of which appear to represent small lymph nodes along the interlobar fissure. Early metastatic disease cannot be excluded. 2. Hepatic metastases. 3. Cholelithiasis. 4. No acute cardiopulmonary process or evidence of malignant lymphadenopathy. Gagan Hdez MD on August 20, 2017 at 9:31 Board Certified Radiologist. This report was verified electronically.
[2017-08-20 12:00] VITALS: BP 106/75; PULSE 102; RESP 16; TEMP 97.1; O2SAT 99
[2017-08-20 16:00] VITALS: BP 116/83; PULSE 89; TEMP 98.2; O2SAT 98
[2017-08-20 20:00] VITALS: BP 110/68; PULSE 95; RESP 16; TEMP 98.1; O2SAT 98
[2017-08-21] VITALS: BP 107/63; PULSE 83; RESP 16; TEMP 98.2; O2SAT 99
[2017-08-21 08:00] VITALS: BP 125/91; PULSE 90; RESP 14; TEMP 97.8; O2SAT 98
[2017-08-21] MEDS: DOCUSATE SODIUM 50 MG/SENNA 8.6 MG TAB PO SCH ×2 (08:36→21:10)
[2017-08-21] MEDS: SODIUM CHLORIDE 0.9% FLUSH 10 ML FLUSH IV FLUSH SCH ×2 (08:36→21:09)
--- NOTE | 2017-08-21 11:14 | HHI.PR ---
Subjective Remarks Patient seen and examined today for follow-up on metastatic liver disease. Patient resting carefully in bed. Pain is controlled with medications. Still awaiting radiology to perform biopsy. Objective Vitals Vital Signs Date Time Temp Pulse Resp B/P (MAP) Pulse Ox O2 Delivery O2 Flow Rate FiO2 08/21/17 08:00 97.8 90 14 125/91 (102) 98 08/21/17 00:00 98.2 83 16 107/63 (78) 99 08/20/17 20:00 98.1 95 16 110/68 (82) 98 08/20/17 16:00 98.2 89 116/83 (94) 98 08/20/17 12:00 97.1 102 16 106/75 (85) 99 I/O 08/20/17 08/20/17 08/20/17 08/21/17 08/21/17 08/21/17 07:00 15:00 23:00 07:00 15:00 23:00 Intake Total 280 ml 720 ml 480 ml Balance 280 ml 720 ml 480 ml Intake Oral 280 ml 720 ml 480 ml # Voids 1 4 # Bowel Movements 0 2 Result Diagram: 08/20/17 0700 08/20/17 0700 Objective Remarks GENERAL: Well-developed, well-nourished, in no acute distress. alert and orientated HEENT: Head is normocephalic without any lesions or masses noted. Facial features are symmetric. Eyes: Extraocular muscles are intact. Conjunctivae were clear. NECK: Supple without any masses. Trachea midline no deviation. No JVD, CARDIAC: Regular rhythm, regular rate. S1/S2 are heard. No murmurs gallops or rubs. LUNGS: Clear to auscultation bilaterally. No wheeze, rhonchi or rales. No use of accessory muscles on inspiration or expiration. ABDOMEN: Soft, nontender. Nondistended. Bowel sounds heard in all 4 quadrants. No organomegaly or masses. Negative rebound, negative guarding EXTREMITIES: No edema, pulses are equal bilaterally. No cyanosis or clubbing NEUROLOGY: Mood and affect appear appropriate. Cranial nerves II through XII grossly intact. Moving all extremities, speech is clear Urinary Catheter: No Vascular Central Line Catheter: No A/P Assessment and Plan Metastatic liver lesions CT scan does indicate significant metastatic disease to liver and adrenal glands CT scan of the chest indicates 3-4 mm pulmonary nodules several which appear to represent small lymph nodes along with intralobar fissure. Early metastatic disease cannot be excluded. Awaiting radiology to perform CT-guided biopsy for tissue identification Tumor markers were performed which that show negative AFP, CEA. However significantly elevated CA-15-3, CA-19-9, CA-125 Oncology consulted, awaiting tissue biopsy for further treatment Abdominal pain with Nausea vomiting, resolved Discontinue IV fluids Continue antiemetics Continue pain control Patient with a counseled extensively on starting workup in the hospital with obtaining biopsy, pain control, oncology consultation and appropriate follow-up upon discharge DVT prevention Sequential compression devices Discharge Planning Discharge home after biopsy performed by radiology Matt Matt Aug 21, 2017 11:14
[2017-08-21 12:00] VITALS: BP 130/91; PULSE 93; RESP 14; TEMP 97.9; O2SAT 99
[2017-08-21 16:00] VITALS: BP 132/90; PULSE 67; RESP 14; TEMP 98.1; O2SAT 98
[2017-08-21 20:00] VITALS: BP 111/69; PULSE 95; RESP 16; TEMP 97.6; O2SAT 97
[2017-08-22] VITALS: BP 115/72; PULSE 85; RESP 16; TEMP 97.5; O2SAT 98
[2017-08-22 08:00] VITALS: BP 131/85; PULSE 86; RESP 20; TEMP 98.1; O2SAT 100
[2017-08-22] MEDS ORDERED: LIDOCAINE HCL 1% 30 ML VIAL SQ ONE (09:55)
--- NOTE | 2017-08-22 10:01 | PD.RAD ---
Post Procedure Progress Note Pre Procedure Diagnosis: (1) Metastatic carcinoma to liver Post Procedure Diagnosis: (1) Metastatic carcinoma to liver Procedure Date: Aug 22, 2017 Supervising Radiologist: Tan Poole Estimated blood loss: None Anesthesia: Local, Conscious Sedation Plan of Activity Patient to Unit: PACU Patient Condition: Good Additional Comments: S/P CT guided biopsy of the liver. 2 18 ga core biopsies taken. Pt. tolerated the procedure well. Full dictated report to follow. See PACS Report for procedural detail/treatment Tan Poole MD Aug 22, 2017 10:01
[2017-08-22] MEDS ORDERED: MIDAZOLAM HCL 2 MG/2 ML VIAL IV ONE (10:27)
[2017-08-22] MEDS ORDERED: OXYC1CAP PO ×2 (10:53→18:37)
[2017-08-22] MEDS ORDERED: ZOFR4TAB PO (10:53)
--- NOTE | 2017-08-22 10:54 | HHI.DCPOC ---
Discharge Care Plan Diagnosis: (1) Metastatic carcinoma to liver (2) Intractable abdominal pain Goals to Promote Your Health * To prevent worsening of your condition and complications * To maintain your health at the optimal level Directions to Meet Your Goals Take your medications as prescribed Follow your dietary instruction Follow activity as directed Keep your appointments as scheduled Take your immunizations and boosters as scheduled If your symptoms worsen call your PCP, if no PCP go to Urgent Care Center or Emergency Room Smoking is Dangerous to Your Health. Avoid second hand smoke Call the 24-hour hour crisis hotline for domestic abuse at Matt Matt Aug 22, 2017 10:54
--- NOTE | 2017-08-22 11:16 | HHI.DS ---
Discharge Summary Admission Date Aug 19, 2017 at 16:11 Discharge Date: Aug 22, 2017 Admitting Diagnosis intractable pain, metastatic liver disease (1) Metastatic carcinoma to liver ICD Code: C78.7 - Secondary malignant neoplasm of liver and intrahepatic bile duct Diagnosis: Principal Status: Acute Procedures CT-guided biopsy of the liver Brief History - From Admission Written by Matt Matt, acting as scribe for Dr. Sahni on 08/19/17 at 15 :23. 57-year-old female with known history of recently diagnosed metastatic liver lesions who presented to hospital because of persistent nausea , vomiting, abdominal pain. This is a rather unfortunate situation, the patient was seen on July 21, 2017 and the emergency department and was found to have metastatic liver lesions, chronic cholecystitis without obstruction. Patient was discharged from the ER with outpatient follow-up with the [facility] as well as mandatory referral to oncology and surgery. Patient has been unable to obtain appointment to oncology for evaluation of her metastatic liver lesions. She has had persistent abdominal pain, weight loss, continued nausea vomiting. She has had no relief of her symptoms and unable to follow-up in outpatient setting, so she returned to the ER for evaluation. Patient has CT scan done of the abdomen which indicated worsening of her metastatic liver lesions. Patient has had persistent abdominal pain that wraps around her right side into her back. She has had continue weight loss. Intermittent nausea vomiting. She vomited last night with green flakes in her vomitus. Because of those reasons it was recommended by ER physician that the patient be observed in the hospital for appropriate consults and management. CBC/BMP: 08/20/17 0700 08/20/17 0700 Significant Findings Laboratory Tests Test 08/19/17 16:35 08/20/17 07:00 Lactate Dehydrogenase 349 U/L (84-246) CA 15-3 Antigen 58.3 U/ML (0.0-32.4) CA 19-9 Antigen 90290.4 U/ML (0.0-35.0) CA 125 Antigen 467.0 U/ML (0.0-30.2) Neutrophils (%) (Auto) 70.7 % (16.0-70.0) Albumin 3.3 GM/DL (3.4-5.0) Alkaline Phosphatase 516 U/L (45-117) Aspartate Amino Transf (AST/SGOT) 80 U/L (15-37) Alanine Aminotransferase (ALT/SGPT) 112 U/L (10-53) Sodium Level 133 MEQ/L (136-145) Chloride Level 97 MEQ/L (98-107) Estimat Glomerular Filtration Rate 70 ML/MIN (>89) Imaging Last Impressions Chest CT 08/20/17 0000 Signed Impressions: Service Date/Time: Sunday, August 20, 2017 08:39 - CONCLUSION: 1. Multiple 3-4 mm pulmonary nodules several of which appear to represent small lymph nodes along the interlobar fissure. Early metastatic disease cannot be excluded. 2. Hepatic metastases. 3. Cholelithiasis. 4. No acute cardiopulmonary process or evidence of malignant lymphadenopathy. Gagan Hdez MD Abdomen/Pelvis CT 08/19/17 0210 Signed Impressions: Service Date/Time: Saturday, August 19, 2017 02:30 - CONCLUSION: 1. Widespread hepatic metastatic disease. No acute process is identified. 2. Cholelithiasis Shaquille Vaz MD PE at Discharge GENERAL: Well-developed, well-nourished, in no acute distress. alert and orientated HEENT: Head is normocephalic without any lesions or masses noted. Facial features are symmetric. Eyes: Extraocular muscles are intact. Conjunctivae were clear. NECK: Supple without any masses. Trachea midline no deviation. No JVD, CARDIAC: Regular rhythm, regular rate. S1/S2 are heard. No murmurs gallops or rubs. LUNGS: Clear to auscultation bilaterally. No wheeze, rhonchi or rales. No use of accessory muscles on inspiration or expiration. ABDOMEN: Soft, nontender. Nondistended. Bowel sounds heard in all 4 quadrants. No organomegaly or masses. Negative rebound, negative guarding EXTREMITIES: No edema, pulses are equal bilaterally. No cyanosis or clubbing NEUROLOGY: Mood and affect appear appropriate. Cranial nerves II through XII grossly intact. Moving all extremities, speech is clear Hospital Course 57-year-old female with history of recently diagnosed metastatic liver disease who originally presented to hospital because of persistent nausea , vomiting and abdominal pain. Patient was diagnosed approximately one month ago with abnormal CT of the liver and possible liver metastasis. It was indicated that she was successful and arranging outpatient workup and management. Patient presented to the emergency department because of nausea, vomiting and abdominal pain. Patient was on Zofran, oxycodone with control of her nausea and pain. Patient was evaluated by oncologist. It was recommended patient undergo CT-guided biopsy the liver. Radiology was consulted biopsy was performed today. Patient tolerated treatment in the hospital well. She has appropriate outpatient follow-up this time. Case management has arranged patient care assistance, outpatient follow-up. Patient should follow-up with oncologist for biopsy report in 5-7 days for treatment options. Pt Condition on Discharge: Stable Discharge Disposition: Discharge Home Discharge Time: > 30 minutes Discharge Instructions DIET: Follow Instructions for: As Tolerated, No Restrictions Activities you can perform: Regular-No Restrictions Activities to Avoid: Driving for 24 hrs Follow up Referrals: Oncology/Hematology - 1 Week with Gilson Ireland MD PCP Follow-up - 1 Week New Medications: Oxycodone (Oxycodone) 5 Mg Cap 5 MG PO Q6H PRN for PAIN, #10 CAP 0 Refills Continued Medications: Ondansetron (Zofran) 4 Mg Tab 4 MG PO Q6HR PRN for NAUSEA OR VOMITING, #10 TAB 0 Refills (This prescription has been renewed) Matt Matt Aug 22, 2017 11:16
[2017-08-22 12:00] VITALS: BP 141/88; PULSE 90; RESP 20; TEMP 98.7; O2SAT 100
--- NOTE | 2017-08-22 13:08 | RADRPT ---
EXAM DATE/TIME: 08/22/2017 09:39 [facility] COMPARISON: CT THORAX W CONTRAST, August 20, 2017, 8:39. INDICATIONS : Liver biopsy for liver lesions. SEDATION TIME: 30 minutes BIOPSY SITE: Right liver MEDICATION(S): 1.) 1 mg midazolam (Versed) IV 2.) 50 mcg fentanyl (Sublimaze) IV DEVICE(S): 1.) 18 gauge Temno core biopsy needle MEDICAL HISTORY : None. SURGICAL HISTORY : None. ENCOUNTER: Initial ACUITY: 1 day PAIN SCORE: 0/10 LOCATION: Right liver A total of two core specimen(s) were obtained and sent to the laboratory for pathologic evaluation. PROCEDURE: 1. CT guided liver biopsy. Prior to the procedure informed consent was obtained. Any appropriate prior imaging studies were rev iewed. Using automated exposure control and adjustment of the mA and/or kV according to patient size, radiat ion dose was kept as low as reasonably achievable to obtain optimal diagnostic quality images. DICOM format image data is available electronically for review and comparison. The site was prepped in a sterile fashion. Full sterile technique was used, including cap, mask, patricia rile gloves and gown and a large sterile sheet. Hand hygiene and 2% chlorhexidine and/or betadine/al cohol prep was utilized per protocol for cutaneous antisepsis. The skin and subcutaneous tissues wer e infiltrated with local anesthetic solution. With CT guidance the previously identified target was localized. Biopsy was performed using the presc ribed needle as above. Adequate hemostasis was obtained with compression at the puncture site. Follow-up CT scan reveals no hemorrhage. The patient tolerated the procedure well and there were no complications. The patient was returned to the Radiology Outpatient Unit in stable condition. CONCLUSION: Uncomplicated CT guided biopsy. Tan Poole MD on August 22, 2017 at 13:07 Board Certified Radiologist. This report was verified electronically.
[2017-08-22 16:12] VITALS: BP 138/70; PULSE 96; RESP 20; TEMP 98.7; O2SAT 99
[2017-08-22] MEDS ORDERED: OXYC-392 PO (18:38)
== END 2017-08-22 17:40 | disposition home or self-care (01) | DRG 436 ==
LOC: PHED 23:57 → INTOOBSV 08-19 03:43 → PHEDA 08-19 03:43 → PH3A 08-19 05:02 → OBSVTOIN 08-19 16:11
PROVIDERS: ADMIT Family Medicine; ATTEND Family Medicine
PROC: 0FB03ZX Excision of Liver, Percutaneous Approach, Diagnostic (ICD-10-PCS; principal; 2017-08-22)
DX: C78.7 Secondary malignant neoplasm of liver and intrahepatic bile duct (principal); K80.10 Calculus of gallbladder with chronic cholecystitis without obstruction; C80.1 Malignant (primary) neoplasm, unspecified; G89.3 Neoplasm related pain (acute) (chronic); Z87.891 Personal history of nicotine dependence; R63.4 Abnormal weight loss; R91.8 Other nonspecific abnormal finding of lung field
CPT/HCPCS: 47000; 71260; 74177; 77012; 80053; 81001; 81270; 82105; 82378; 83615; 83690; 85025; 85610; 85730; 86300; 86301; 86304; 86316; 88307; 88341; 88342; 96374; 96375; J2250; J2270; J2405; J3010; Q9967

== ENCOUNTER 2017-09-07 06:07 | Day surgery (SDC) | payer OTHER ==
[~2017-09-07] VITALS: Ht 165.1 cm; Wt 60.5 kg
[~2017-09-07 06:07] MED LIST changes: +OXYC-392 PO
[2017-09-07 06:45] VITALS: BP 141/92; PULSE 98; RESP 20; TEMP 97.5; O2SAT 99
[2017-09-07] MEDS ORDERED: POVIDONE IODINE 5% (ANTISEPSIS KIT) 4 APPLICATIONS EACH NARE SCH (07:00)
[2017-09-07] MEDS ORDERED: ceFAZolin 2 GM PREMIX 50 ML - implanted port/tunneled catheter insertion IV SCH (07:00)
[2017-09-07] MEDS ORDERED: VANCOMYCIN 1000 MG/NS 250 ML - implanted port/tunneled catheter IV SCH ×2 (07:00)
[2017-09-07] MEDS ORDERED: CHLORHEXIDINE GLUCONATE 2 % 1 PACK (2 CLOTHS) TOPICAL SCH (07:00)
[2017-09-07] MEDS ORDERED: SODIUM CHLORIDE 0.9% 1000 ML IV SCH (07:00)
[2017-09-07 07:24] LABS: AUTOMATED NEUTROPHIL # 5.4 TH/MM3 (1.8-7.7); BASOPHIL # 0.1 TH/MM3 (0-0.2); EOSINOPHIL # 0.1 TH/MM3 (0-0.4); EOSINOPHIL % 1.6 % (0.0-4.0); HEMATOCRIT 42.5 % (35.0-46.0); HEMO FLAGS DIFF FINAL; LYMPH % 15.2 % (9.0-44.0); LYMPHOCYTE # 1.1 TH/MM3 (1.0-4.8); MEAN CELL VOLUME 87.7 FL (80.0-100.0); MEAN CORPUSCULAR HEMOGLOBIN 29.8 PG (27.0-34.0); MONO % 8.8 % (0.0-8.0); NEUT % 73.4 % (16.0-70.0); PLATELET COUNT 304 TH/MM3 (150-450); RED BLOOD COUNT 4.85 MIL/MM3 (4.00-5.30); RED CELL DISTRIBUTION WIDTH 13.1 % (11.6-17.2); WHITE BLOOD COUNT 7.3 TH/MM3 (4.0-11.0)
[2017-09-07 07:31] LABS: APTT (PATIENT) 27.6 SEC (24.3-30.1)
[2017-09-07] MEDS ORDERED: MIDAZOLAM HCL 2 MG/2 ML VIAL ONE (07:46)
[2017-09-07] MEDS ORDERED: LIDOCAINE 1%/EPINEPHrine 1:100,000 SOLN 20 ML VIAL ONE (08:13)
--- NOTE | 2017-09-07 09:04 | PD.RAD ---
Post Procedure Progress Note Pre Procedure Diagnosis: (1) Cholangiocarcinoma Post Procedure Diagnosis: (1) Cholangiocarcinoma Procedure Date: Sep 07, 2017 Supervising Radiologist: Tan Poole Estimated blood loss: 3cc Anesthesia: Local, Conscious Sedation Plan of Activity Patient to Unit: ROPU Patient Condition: Fair Additional Comments: Port placed via the right IJ. Catheter in good position OK for use. Full dictated report to follow See PACS Report for procedural detail/treatment Tan Poole MD Sep 07, 2017 09:04
[2017-09-07] MEDS ORDERED: SODIUM CHLORIDE 0.9% FLUSH 10 ML FLUSH IVF PRN (09:15)
[2017-09-07 09:19] VITALS: BP 109/75; PULSE 105; RESP 18; TEMP 97.6; O2SAT 99
[2017-09-07 09:30] VITALS: BP 116/79; PULSE 107; RESP 18; O2SAT 98
[2017-09-07 09:45] VITALS: BP 128/76; PULSE 110; RESP 18; O2SAT 98
[2017-09-07 10:15] VITALS: BP 101/67; PULSE 108; RESP 18; O2SAT 96
[2017-09-07 10:45] VITALS: BP 103/67; PULSE 103; RESP 18; O2SAT 98
--- NOTE | 2017-09-07 17:45 | RADRPT ---
EXAM DATE/TIME: 09/07/2017 09:31 [facility] COMPARISON: No previous studies available for comparison. INDICATIONS : Patient with metastatic liver lesions in need of [id number] placement. MEDICAL HISTORY : Intrahepatic cholangiocarcinoma, Pulmonary nodules, Metastatic liver lesions, Chronic cholecystitis w ithout obstruction SURGICAL HISTORY : Liver biopsy ENCOUNTER: Initial ACUITY: 1 month PAIN SCORE: 0/10 FLUORO TIME: 0.3 minutes IMAGE SERIES: 2 SEDATION TIME: 30 minutes ACCESS: Right internal jugular vein SEDATION: 1.) 3 mg midazolam (Versed) IV 2.) 150 mcg fentanyl (Sublimaze) IV Prophylactic antibiotics were administered with appropriate pre-procedure timing. Vancomycin within 2 hours of procedure, Ancef (or alternative) within 1 hour of procedure. DEVICE: 1. 8 Hungarian single lumen Smart power port with vortex PROCEDURE : 1. Continuous pulse oximetry and EKG monitoring. 2. Intravenous conscious sedation. 3. Ultrasound guidance for venous access. 4. Fluoroscopic guided implantable central venous port placement. The patient was placed supine. The neck was prepped in sterile fashion. Full sterile technique was u sed, including cap, mask, sterile gloves and gown, and a large sterile sheet. Hand hygiene and 2% ch lorhexidine Betadine was utilized per protocol for cutaneous antisepsis with appropriate dry time for site. Sterile gel and sterile probe cover were utilized for ultrasound guidance. The skin and sub cutaneous tissues were infiltrated with local anesthetic solution. Under direct ultrasound guidance, central venous access was accomplished in the targeted vessel. The ultrasound images depicting access guidance were stored and saved to PACS for permanent record. A s ubcutaneous pocket was created using blunt dissection. The port was introduced to the pocket. The c atheter tubing was fed through a subcutaneous tunnel to the venotomy site. The catheter tubing was c ut to a suitable length and then was introduced through a valved Peel-Away sheath and positioned with catheter tubing tip at the cavo-atrial junction level. The pocket incision was closed with subcutic ular Vicryl suture. Steri-Strips were applied. The port was flushed and locked with heparin solutio n per protocol. Sterile dressing was applied to the site. The patient tolerated the procedure well. Conscious sedation was performed with the prescribed dosages and duration as above in the presence of an independent trained radiology nurse to assist in the monitoring of the patient. EKG and oximetry remained stable throughout the procedure. The patient tolerated the procedure well and there were no complications. The patient was sent to post anesthesia recovery in stable condition. CONCLUSION: Uncomplicated ultrasound and fluoroscopic guided implanted central venous port catheter placement as described in detail above. An 8 Hungarian Power port was placed. Tan Poole MD on September 07, 2017 at 17:43 Board Certified Radiologist. This report was verified electronically.
== END 2017-09-07 11:17 | disposition home or self-care (01) ==
LOC: HROP 06:07 → HRIP 06:10 → HROP 11:17
PROVIDERS: ATTEND Internal Medicine Hematology & Oncology
DX: Z45.2 Encounter for adjustment and management of vascular access device (principal); C22.1 Intrahepatic bile duct carcinoma
CPT/HCPCS: 36561; 76937; 77001; 85025; 85610; 85730; 99152; 99153; C1788; J0690; J1642; J2250; J3010; J3370; J7030; J7050

== ENCOUNTER 2017-09-10 08:01 | Emergency (ER) | payer OTHER ==
[~2017-09-10] VITALS: Ht 165.1 cm; Wt 61.0 kg
[2017-09-10 08:08] VITALS: BP 111/67; PULSE 117; RESP 16; TEMP 97.9; O2SAT 97
[2017-09-10] MEDS ORDERED: [UNRECOGNIZED DRUG - CODE] IV (08:24)
[2017-09-10] MEDS ORDERED: [UNRECOGNIZED DRUG - CODE] IV-CENTRAL (08:24)
[2017-09-10] MEDS ORDERED: LEUCOVORIN IV-CENTRAL (08:24)
[2017-09-10 08:42] LABS: AUTOMATED NEUTROPHIL # 7.5 TH/MM3 (1.8-7.7); BASOPHIL # 0.2 TH/MM3 (0-0.2); EOSINOPHIL % 0.5 % (0.0-4.0); HEMATOCRIT 40.9 % (35.0-46.0); HEMO FLAGS DIFF FINAL; LYMPH % 9.6 % (9.0-44.0); LYMPHOCYTE # 0.9 TH/MM3 (1.0-4.8); MEAN CELL VOLUME 88.4 FL (80.0-100.0); MEAN CORPUSCULAR HEMOGLOBIN 28.6 PG (27.0-34.0); MEAN CORPUSCULAR HGB CONC 32.4 % (32.0-36.0); MONO % 6.3 % (0.0-8.0); NEUT % 81.6 % (16.0-70.0); PLATELET COUNT 301 TH/MM3 (150-450); RED BLOOD COUNT 4.63 MIL/MM3 (4.00-5.30); RED CELL DISTRIBUTION WIDTH 12.6 % (11.6-17.2); WHITE BLOOD COUNT 9.2 TH/MM3 (4.0-11.0)
[2017-09-10 08:58] LABS: CHLORIDE 98 MEQ/L (98-107); POTASSIUM 3.6 MEQ/L (3.5-5.1); SODIUM (NA) 131 MEQ/L (136-145)
[2017-09-10 09:02] LABS: ANION GAP 10 MEQ/L (5-15); BICARBONATE 23.3 MEQ/L (21.0-32.0)
[2017-09-10 09:03] LABS: BLOOD UREA NITROGEN 9 MG/DL (7-18)
[2017-09-10 09:05] LABS: ALT (GPT) 70 U/L (10-53); AST (GOT) 80 U/L (15-37)
[2017-09-10 09:06] LABS: GLOMERULAR FILTRATION RATE 95 ML/MIN (>89)
[2017-09-10 09:07] LABS: TOTAL BILIRUBIN ADULT 0.9 MG/DL (0.2-1.0)
[2017-09-10 09:08] LABS: ALKALINE PHOSPHATASE 547 U/L (45-117)
--- NOTE | 2017-09-10 09:11 | PD ---
HPI Chief Complaint: GI Complaint Time Seen by Provider: 08:54 Travel History International Travel<30 days: No Contact w/Intl Traveler<30days: No Traveled to known affect area: No History of Present Illness HPI 57-year-old female complains of nausea vomiting and hematemesis. Patient with history of intrahepatic cholangiocarcinoma. Patient received her first dose of chemotherapy yesterday. Patient states that she is having intermittent nausea after chemotherapy. Patient states that she vomited once this morning with coffee ground material. Patient denies any recurrent symptoms since then. Patient took a Zofran this morning. Patient denies any headache. Patient denies any chest pain or shortness of breath. Patient is having indigestion symptoms this morning. Patient states that abdominal pain localized throughout epigastric and right upper quadrant has not changed. Patient denies any fever chills. Patient denies any dysuria or frequency. PFSH Past Medical History Cancer: Yes (LIVER WITH METS) Chemotherapy: Yes Gastrointestinal Disorders: Yes ( hepatocarcinoma) Implanted Vascular Access Dvce: Yes (RIGHT SMART PORT) Musculoskeletal: Yes (Right hip pain) Reproductive: No Immunizations Current: No Tetanus Vaccination: > 5 Years Influenza Vaccination: No Menopausal: Yes Past Surgical History AICD: No Joint Replacement: No Pacemaker: No Other Surgery: Yes (Cyst removal) Social History Alcohol Use: No Tobacco Use: No ( A TEEN) Substance Use: No Allergies-Medications (Allergen,Severity, Reaction): Coded Allergies: No Known Allergies (Verified Allergy, Unknown, 09/10/17) Reported Meds & Prescriptions Reported Meds & Active Scripts Active Oxycodone (Oxycodone HCl) 5 Mg Tab 5 Mg PO Q6HR Zofran (Ondansetron HCl) 4 Mg Tab 4 Mg PO Q6HR PRN Reported Oxaliplatin Inj (Oxaliplatin) 100 Mg/20 Ml (5 Mg/Ml) Inj IV-CENTRAL DIRECTED [Levcovorin] 1 Container IV-CENTRAL DIRECTED Adrucil Inj (Fluorouracil) 500 Mg/10 Ml Vial 500 Mg IV DIRECTED Review of Systems General / Constitutional: No: Fever Eyes: No: Visual changes HENT: No: Headaches Cardiovascular: No: Chest Pain or Discomfort Respiratory: No: Shortness of Breath Gastrointestinal: Positive: Nausea, Vomiting, Abdominal Pain, Hematemesis Genitourinary: No: Dysuria Musculoskeletal: No: Pain Skin: No Rash Neurologic: No: Weakness Psychiatric: No: Depression Endocrine: No: Polydipsia Hematologic/Lymphatic: No: Easy Bruising Physical Exam Narrative GENERAL: Well-nourished, well-developed patient. SKIN: Focused skin assessment warm/dry. HEAD: Normocephalic. EYES: No scleral icterus. No injection or drainage. NECK: Supple, trachea midline. No JVD or lymphadenopathy. CARDIOVASCULAR: Regular rate and rhythm without murmurs, gallops, or rubs. RESPIRATORY: Breath sounds equal bilaterally. No accessory muscle use. GASTROINTESTINAL: Abdomen soft, nondistended. Patient has mild to moderate tenderness on palpation epigastric and right upper quadrant of the abdomen. No rebound tenderness. MUSCULOSKELETAL: No cyanosis, or edema. BACK: Nontender without obvious deformity. No CVA tenderness. Neurologic exam normal. Data Data Last Documented VS Vital Signs Date Time Temp Pulse Resp B/P (MAP) Pulse Ox O2 Delivery O2 Flow Rate FiO2 09/10/17 08:20 (82) 09/10/17 08:08 97.9 117 16 97 Room Air Orders Orders Complete Blood Count With Diff (09/10/17 08:25) Comprehensive Metabolic Panel (09/10/17 08:25) Urinalysis - C+S If Indicated (09/10/17 08:25) Iv Access Insert/Monitor (09/10/17 08:25) Oxygen Administration (09/10/17 08:25) Oximetry (09/10/17 08:25) Sodium Chlor 0.9% 1000 Ml Inj (Ns 1000 M (09/10/17 09:15) Ecg Monitoring (09/10/17 09:03) Ondansetron Inj (Zofran Inj) (09/10/17 09:15) Sodium Chloride 0.9% Flush (Ns Flush) (09/10/17 09:15) Famotidine Inj (Pepcid Inj) (09/10/17 09:15) Labs Laboratory Tests Test 09/10/17 08:35 White Blood Count 9.2 TH/MM3 Red Blood Count 4.63 MIL/MM3 Hemoglobin 13.2 GM/DL Hematocrit 40.9 % Mean Corpuscular Volume 88.4 FL Mean Corpuscular Hemoglobin 28.6 PG Mean Corpuscular Hemoglobin Concent 32.4 % Red Cell Distribution Width 12.6 % Platelet Count 301 TH/MM3 Mean Platelet Volume 7.2 FL Neutrophils (%) (Auto) 81.6 % Lymphocytes (%) (Auto) 9.6 % Monocytes (%) (Auto) 6.3 % Eosinophils (%) (Auto) 0.5 % Basophils (%) (Auto) 2.0 % Neutrophils # (Auto) 7.5 TH/MM3 Lymphocytes # (Auto) 0.9 TH/MM3 Monocytes # (Auto) 0.6 TH/MM3 Eosinophils # (Auto) 0.0 TH/MM3 Basophils # (Auto) 0.2 TH/MM3 CBC Comment DIFF FINAL Differential Comment Blood Urea Nitrogen 9 MG/DL Creatinine 0.64 MG/DL Random Glucose 108 MG/DL Total Protein 6.9 GM/DL Albumin 3.0 GM/DL Calcium Level 9.0 MG/DL Alkaline Phosphatase 547 U/L Aspartate Amino Transf (AST/SGOT) 80 U/L Alanine Aminotransferase (ALT/SGPT) 70 U/L Total Bilirubin 0.9 MG/DL Sodium Level 131 MEQ/L Potassium Level 3.6 MEQ/L Chloride Level 98 MEQ/L Carbon Dioxide Level 23.3 MEQ/L Anion Gap 10 MEQ/L Estimat Glomerular Filtration Rate 95 ML/MIN [facility] Medical Decision Making Medical Screen Exam Complete: Yes Emergency Medical Condition: Yes Differential Diagnosis Differential diagnosis including upper GI bleed, Mayuri-Henry tear, side effect of chemotherapy. Narrative Course 57-year-old female with nausea vomiting and one episode of coffee ground vomitus this morning. Patient has history of intrahepatic cholangiocarcinoma, status post chemotherapy first dose yesterday. Normal saline solution 1 L IV bolus. Zofran 4 mg IV. Pepcid 20 mg IV. I spoke with Dr. Vaughan, on-call today. Diagnosis Primary Impression: Cholangiocarcinoma Additional Impression: Hematemesis Qualified Codes: K92.0 - Hematemesis Patient Instructions: General Instructions Additional Instructions: Continue with Zofran as directed. Protonix as directed. Follow-up with personal physician in a.m. Return if worse. Med/Other Pt SpecificInfo: Prescription(s) given Scripts Ondansetron Odt (Zofran Odt) 4 Mg Tab 4 MG SL Q6HR Y for Nausea/Vomiting, #30 TAB 0 Refills Prov: Clint Kaplan MD 09/10/17 Pantoprazole (Protonix) 40 Mg Tab 40 MG PO DAILY for Reflux, #30 TAB 0 Refills Prov: Clint Kaplan MD 09/10/17 Disposition: 01 DISCHARGE HOME Condition: Stable Clint Kaplan MD Sep 10, 2017 09:10
[2017-09-10] MEDS ORDERED: SODIUM CHLORIDE 0.9% FLUSH 10 ML FLUSH IV FLUSH PRN (09:15)
[2017-09-10] MEDS ORDERED: SODIUM CHLOR 0.9% 1000 ML INJ 1,000 ML IV ONE (09:15)
[2017-09-10] MEDS ORDERED: ONDANSETRON HCL 4 MG/2 ML VIAL IVP ONE (09:15)
[2017-09-10] MEDS ORDERED: FAMOTIDINE 20 MG/2 ML VIAL IV PUSH ONE (09:15)
[2017-09-10] MEDS ORDERED: ZOFR4TAB3 SL (09:18)
[2017-09-10] MEDS ORDERED: PROT40TA PO (09:18)
[2017-09-10 10:07] VITALS: BP 152/94; PULSE 89; RESP 16; O2SAT 96
[2017-09-11] MEDS ORDERED: PROM25TA10 PO (09:14)
== END 2017-09-10 10:18 | disposition home or self-care (01) ==
LOC: PHED 08:01
DX: C22.1 Intrahepatic bile duct carcinoma (principal); K92.0 Hematemesis
CPT/HCPCS: 80053; 85025; 96361; 96374; 96375; 99284; J2405; J7030

== ENCOUNTER 2017-09-10 18:34 | Observation (INO) | payer OTHER ==
[~2017-09-10 18:34] MED LIST changes: +LEUCOVORIN IV-CENTRAL; +PROT40TA PO; +ZOFR4TAB3 SL; +[UNRECOGNIZED DRUG - CODE] IV; +[UNRECOGNIZED DRUG - CODE] IV-CENTRAL
[2017-09-10 18:39] VITALS: BP 140/90; PULSE 106; RESP 20; TEMP 98.2; O2SAT 99
[2017-09-10] MEDS ORDERED: SODIUM CHLORIDE 0.9% FLUSH 10 ML FLUSH IV FLUSH PRN ×2 (19:00→20:30)
[2017-09-10 19:06] VITALS: O2SAT 97
[2017-09-10 19:18] LABS: AUTOMATED NEUTROPHIL # 7.1 TH/MM3 (1.8-7.7); BASOPHIL % 0.5 % (0.0-2.0); EOSINOPHIL % 0.4 % (0.0-4.0); HEMATOCRIT 39.6 % (35.0-46.0); HEMO FLAGS DIFF FINAL; LYMPH % 8.6 % (9.0-44.0); LYMPHOCYTE # 0.7 TH/MM3 (1.0-4.8); MEAN CELL VOLUME 87.8 FL (80.0-100.0); MEAN CORPUSCULAR HEMOGLOBIN 29.4 PG (27.0-34.0); MEAN CORPUSCULAR HGB CONC 33.5 % (32.0-36.0); MONO % 3.9 % (0.0-8.0); NEUT % 86.6 % (16.0-70.0); PLATELET COUNT 294 TH/MM3 (150-450); RED BLOOD COUNT 4.51 MIL/MM3 (4.00-5.30); RED CELL DISTRIBUTION WIDTH 12.6 % (11.6-17.2); WHITE BLOOD COUNT 8.1 TH/MM3 (4.0-11.0)
[2017-09-10 19:28] LABS: POTASSIUM 3.6 MEQ/L (3.5-5.1)
[2017-09-10] MEDS ORDERED: MORPHINE SULFATE 4 MG/ML INJ IV PUSH ONE (19:30)
[2017-09-10] MEDS ORDERED: SODIUM CHLOR 0.9% 1000 ML INJ 1,000 ML IV ONE (19:30)
[2017-09-10] MEDS ORDERED: ONDANSETRON HCL 4 MG/2 ML VIAL IV PUSH ONE (19:30)
[2017-09-10 19:31] LABS: BICARBONATE 22.7 MEQ/L (21.0-32.0)
[2017-09-10 19:34] LABS: APTT (PATIENT) 26.5 SEC (24.3-30.1); PROTHROMBIN TIME - PATIENT 10.9 SEC (9.8-11.6)
--- NOTE | 2017-09-10 19:51 | RADRPT ---
EXAM DATE/TIME: 09/10/2017 19:29 [facility] COMPARISON: CT ABDOMEN & PELVIS W CONTRAST, August 19, 2017, 2:30. INDICATIONS : Abdominal pain, nausea, vomiting. MEDICAL HISTORY : Gall stones, liver cancer. SURGICAL HISTORY : None. ENCOUNTER: Initial ACUITY: 4 - 6 months PAIN SCORE: 5/10 LOCATION: Bilateral abdomen FINDINGS: No bowel distention or free air. Moderate amount of stool in the right side of the colon. No evidence of organomegaly. Gallstones can be seen. There is a benign left iliac bone island. CONCLUSION: 1. No obstruction or free air. 2. Moderate stool in the right side of the colon. 3. Gallstones. Kishor Cedeno MD on September 10, 2017 at 19:48 Board Certified Radiologist. This report was verified electronically.
--- NOTE | 2017-09-10 19:55 | PD ---
HPI Chief Complaint: GI Complaint Time Seen by Provider: 18:43 Travel History International Travel<30 days: No Contact w/Intl Traveler<30days: No Traveled to known affect area: No History of Present Illness HPI Patient 57-year-old female with a history of cholangiocarcinoma presents emergency department for evaluation of nausea and vomiting. The patient just had her first FOLFOX treatment yesterday and is concerning fluorouracil infusion into her central line. She was actually here earlier today and was given doses Zofran and some fluids and felt well enough to try going home, she states that she had 2 doses and Zofran at home for nausea felt well enough to take a shower and then she vomited up some spinach that she had eaten earlier in the day. She's also had some other episodes of emesis intermittently productive of coffee grounds as well as green bile. States that after the nausea and vomiting is started she started to have some abdominal wall pain she states from using her muscles too much and vomiting. She's currently followed by Dr. Lambert the oncology service. She called the care center and spoke to her physician today who told to take another Zofran and relaxing try some fluids and she was unable to even tolerate fluids. No fevers no diarrhea no constipation. PFSH Past Medical History Cancer: Yes (LIVER WITH METS) Chemotherapy: Yes Gastrointestinal Disorders: Yes ( hepatocarcinoma) Implanted Vascular Access Dvce: Yes (RIGHT SMART PORT) Musculoskeletal: Yes (Right hip pain) Reproductive: No Immunizations Current: No Menopausal: Yes Past Surgical History AICD: No Joint Replacement: No Pacemaker: No Other Surgery: Yes (Cyst removal) Social History Alcohol Use: No Tobacco Use: No ( A TEEN) Substance Use: No Allergies-Medications (Allergen,Severity, Reaction): Coded Allergies: No Known Allergies (Verified Allergy, Unknown, 09/10/17) Reported Meds & Prescriptions Reported Meds & Active Scripts Active Zofran Odt (Ondansetron Odt) 4 Mg Tab 4 Mg SL Q6HR PRN Protonix (Pantoprazole Sodium) 40 Mg Tab 40 Mg PO DAILY Oxycodone (Oxycodone HCl) 5 Mg Tab 5 Mg PO Q6HR Reported Oxaliplatin Inj (Oxaliplatin) 100 Mg/20 Ml (5 Mg/Ml) Inj IV-CENTRAL DIRECTED [Levcovorin] 1 Container IV-CENTRAL DIRECTED Adrucil Inj (Fluorouracil) 500 Mg/10 Ml Vial 500 Mg IV DIRECTED Review of Systems Except as stated in HPI: all other systems reviewed are Neg Physical Exam Narrative GENERAL: Well-developed well-nourished, appears minimally uncomfortable. SKIN: Warm and dry. Right-sided central line site clean dry and intact. HEAD: Atraumatic. Normocephalic. EYES: Pupils equal and round. No scleral icterus. No injection or drainage. ENT: No nasal bleeding or discharge. Mucous membranes pink and moist. NECK: Trachea midline. No JVD. CARDIOVASCULAR: Regular rate and rhythm. RESPIRATORY: No accessory muscle use. Clear to auscultation. Breath sounds equal bilaterally. GASTROINTESTINAL: Abdomen soft, non-tender, nondistended. Hepatic and splenic margins not palpable. No rebound no percussive tenderness. MUSCULOSKELETAL: Extremities without clubbing, cyanosis, or edema. No obvious deformities. NEUROLOGICAL: Awake and alert. No obvious cranial nerve deficits. Motor grossly within normal limits. Five out of 5 muscle strength in the arms and legs. Normal speech. PSYCHIATRIC: Appropriate mood and affect; insight and judgment normal. Data Data Last Documented VS Vital Signs Date Time Temp Pulse Resp B/P (MAP) Pulse Ox O2 Delivery O2 Flow Rate FiO2 09/10/17 19:06 97 Room Air 09/10/17 18:39 98.2 106 20 140/90 (107) Orders Orders Basic Metabolic Panel (Bmp) (09/10/17 18:51) Complete Blood Count With Diff (09/10/17 18:51) Prothrombin Time / Inr (Pt) (09/10/17 18:51) Act Partial Throm Time (Ptt) (09/10/17 18:51) Iv Access Insert/Monitor (09/10/17 18:51) Ecg Monitoring (09/10/17 18:51) Oximetry (09/10/17 18:51) Sodium Chloride 0.9% Flush (Ns Flush) (09/10/17 19:00) Abdomen, Flat & Upright (09/10/17 ) Sodium Chlor 0.9% 1000 Ml Inj (Ns 1000 M (09/10/17 19:30) Morphine Inj (Morphine Inj) (09/10/17 19:30) Ondansetron Inj (Zofran Inj) (09/10/17 19:30) Admit Order (Ed Use Only) (09/10/17 ) Labs Laboratory Tests Test 09/10/17 19:03 White Blood Count 8.1 TH/MM3 Red Blood Count 4.51 MIL/MM3 Hemoglobin 13.3 GM/DL Hematocrit 39.6 % Mean Corpuscular Volume 87.8 FL Mean Corpuscular Hemoglobin 29.4 PG Mean Corpuscular Hemoglobin Concent 33.5 % Red Cell Distribution Width 12.6 % Platelet Count 294 TH/MM3 Mean Platelet Volume 7.0 FL Neutrophils (%) (Auto) 86.6 % Lymphocytes (%) (Auto) 8.6 % Monocytes (%) (Auto) 3.9 % Eosinophils (%) (Auto) 0.4 % Basophils (%) (Auto) 0.5 % Neutrophils # (Auto) 7.1 TH/MM3 Lymphocytes # (Auto) 0.7 TH/MM3 Monocytes # (Auto) 0.3 TH/MM3 Eosinophils # (Auto) 0.0 TH/MM3 Basophils # (Auto) 0.0 TH/MM3 CBC Comment DIFF FINAL Differential Comment Prothrombin Time 10.9 SEC Prothromb Time International Ratio 1.0 RATIO Activated Partial Thromboplast Time 26.5 SEC Blood Urea Nitrogen 8 MG/DL Creatinine 0.73 MG/DL Random Glucose 103 MG/DL Calcium Level 8.9 MG/DL Sodium Level 134 MEQ/L Potassium Level 3.6 MEQ/L Chloride Level 101 MEQ/L Carbon Dioxide Level 22.7 MEQ/L Anion Gap 10 MEQ/L Estimat Glomerular Filtration Rate 82 ML/MIN MDM Medical Decision Making Medical Screen Exam Complete: Yes Emergency Medical Condition: Yes Differential Diagnosis Nausea and vomiting secondary to chemotherapy, acute abdomen unlikely, obstruction, electro-light abnormality. Narrative Course Patient roomed emerged permit given her second presentation in the ER today and multiple episodes of emesis home recommended observation status to her and she is agreeable. Patient was discussed with Dr. Sanchez who agrees for observation status. Diagnosis Primary Impression: Chemotherapy-induced nausea Admitting Information Admitting Physician Requests: Observation Scripts Promethazine (Phenergan) 25 Mg Tablet 25 MG PO Q6H Y for NAUSEA OR VOMITING, #30 TAB 0 Refills Prov: Yarelis Sanchez MD 09/11/17 Condition: Stable Ned Mo MD Sep 10, 2017 19:55
[2017-09-10] MEDS ORDERED: MAGNESIUM HYDROXIDE SUSP 30 ML CUP PO PRN (20:30)
[2017-09-10] MEDS ORDERED: ONDANSETRON HCL 4 MG/2 ML VIAL IVP PRN (20:30)
[2017-09-10] MEDS ORDERED: SODIUM CHLOR 0.9% 1000 ML INJ 1,000 ML IV SCH (20:30)
[2017-09-10] MEDS ORDERED: BISACODYL 10 MG SUPP RECTAL PRN (20:30)
[2017-09-10] MEDS ORDERED: MORPHINE SULFATE 4 MG/ML INJ IV PUSH PRN (20:30)
[2017-09-10] MEDS ORDERED: ACETAMINOPHEN 325 MG TAB PO PRN (20:30)
[2017-09-10] MEDS ORDERED: SENNOSIDES 8.6 MG TAB PO PRN (20:30)
[2017-09-10] MEDS ORDERED: LACTULOSE SYRUP 20 GM/30 ML CUP PO PRN (20:30)
[2017-09-10 20:44] VITALS: BP 133/84; PULSE 84; RESP 16; O2SAT 98
[2017-09-10] MEDS ORDERED: TRIMETHOBENZAMIDE INJ 200 MG/2 ML VIAL IM PRN (20:45)
[2017-09-10] MEDS: SODIUM CHLORIDE 0.9% FLUSH 10 ML FLUSH IV FLUSH SCH (21:00)
[2017-09-10] MEDS: DOCUSATE SODIUM 50 MG/SENNA 8.6 MG TAB PO SCH (21:00)
[2017-09-10 21:07] VITALS: BP 128/84; TEMP 98.4
[2017-09-10 21:33] VITALS: BP 140/86; PULSE 90; RESP 20; TEMP 97.9; O2SAT 98
[2017-09-11] VITALS: BP 155/92; PULSE 89; RESP 20; TEMP 97.4; O2SAT 97
[2017-09-11 07:20] LABS: AUTOMATED NEUTROPHIL # 5.5 TH/MM3 (1.8-7.7); BASOPHIL % 0.7 % (0.0-2.0); EOSINOPHIL # 0.1 TH/MM3 (0-0.4); EOSINOPHIL % 1.1 % (0.0-4.0); HEMATOCRIT 37.6 % (35.0-46.0); HEMO FLAGS DIFF FINAL; LYMPH % 11.5 % (9.0-44.0); LYMPHOCYTE # 0.8 TH/MM3 (1.0-4.8); MEAN CELL VOLUME 89.1 FL (80.0-100.0); MEAN CORPUSCULAR HEMOGLOBIN 29.1 PG (27.0-34.0); MEAN CORPUSCULAR HGB CONC 32.6 % (32.0-36.0); MONO % 2.3 % (0.0-8.0); NEUT % 84.4 % (16.0-70.0); PLATELET COUNT 263 TH/MM3 (150-450); RED BLOOD COUNT 4.22 MIL/MM3 (4.00-5.30); RED CELL DISTRIBUTION WIDTH 12.7 % (11.6-17.2); WHITE BLOOD COUNT 6.6 TH/MM3 (4.0-11.0)
[2017-09-11 07:25] LABS: CHLORIDE 105 MEQ/L (98-107); POTASSIUM 3.7 MEQ/L (3.5-5.1); SODIUM (NA) 137 MEQ/L (136-145)
[2017-09-11 07:29] LABS: ANION GAP 10 MEQ/L (5-15); BICARBONATE 21.9 MEQ/L (21.0-32.0); BLOOD UREA NITROGEN 8 MG/DL (7-18)
[2017-09-11 07:32] LABS: ALT (GPT) 95 U/L (10-53); AST (GOT) 119 U/L (15-37); GLOMERULAR FILTRATION RATE 107 ML/MIN (>89)
[2017-09-11 07:33] LABS: TOTAL BILIRUBIN ADULT 0.9 MG/DL (0.2-1.0)
[2017-09-11 07:35] LABS: ALKALINE PHOSPHATASE 493 U/L (45-117)
[2017-09-11 09:00] VITALS: BP 163/98; PULSE 88; RESP 16; TEMP 97.3; O2SAT 98
--- NOTE | 2017-09-11 09:13 | HHI.HP ---
[facility] Non-Staff Admission Diagnosis Intractible N/V, On chemotherapy. Diagnoses: Chief Complaint: weakness nausea and vomiting Travel History International Travel<30 Days: No Contact w/Intl Traveler <30 Da: No Traveled to Known Affected Are: No History of Present Illness This patient is a 57-year-old female with a relatively new diagnosis of cholangiocarcinoma. She was started on oral chemotherapy however she was not tolerating that so Tuesday they started and the infusion through her port. She was started on FOLFOX. She has progressively had nausea and vomiting and been unable to keep food or liquids down. She came into the emergency room earlier in the day yesterday and was given antiemetics and felt well enough to go home however she did return with worsening nausea and vomiting. Here she has received IV Zofran and felt better. She reports some dizziness and nausea however does greatly improved. She notes no pain, no fever. She's had some bilious vomiting without alok blood. Currently she is ambulatory and receiving IV saline infusion. Review of Systems Constitutional: DENIES: Diaphoretic episodes, Fatigue, Fever, Weight gain, Weight loss, Chills, Dizziness, Change in appetite, Night Sweats Endocrine: DENIES: Abnorml menstrual pattern, Heat/cold intolerance, Polydipsia , Polyuria, Polyphagia Eyes: DENIES: Blurred vision, Diplopia, Eye inflammation, Eye pain, Vision loss , Photosensitivity, Double Vision Respiratory: DENIES: Apneas, Cough, Snoring, Wheezing, Hemoptysis, Sputum production, Shortness of breath Cardiovascular: DENIES: Chest pain, Palpitations, Syncope, Dyspnea on Exertion , PND, Lower Extremity Edema, Orthopnea, Claudication Gastrointestinal: COMPLAINS OF: Nausea, Vomiting, DENIES: Abdominal pain, Black stools, Bloody stools, Constipation, Diarrhea, Difficulty Swallowing, Anorexia Genitourinary: DENIES: Abnormal vaginal bleeding, Dysmenorrhea, Dyspareunia, Sexual dysfunction, Urinary frequency, Urinary incontinence, Urgency, Hematuria , Dysuria, Nocturia, Vaginal discharge Musculoskeletal: DENIES: Joint pain, Muscle aches, Stiffness, Joint Swelling, Back pain, Neck pain Integumentary: DENIES: Abnormal pigmentation, Pruritus, Rash, Nail changes, Breast masses, Breast skin changes, Nipple discharge Hematologic/lymphatic: DENIES: Bruising, Lymphadenopathy Immunologic/allergic: DENIES: Eczema, Urticaria Neurologic: DENIES: Abnormal gait, Headache, Localized weakness, Paresthesias, Seizures, Speech Problems, Tremor, Poor Balance Psychiatric: DENIES: Anxiety, Confusion, Mood changes, Depression, Hallucinations, Agitation, Suicidal Ideation, Homicidal Ideation, Delusions Except as stated in HPI: all other systems reviewed are Neg Past Family Social History Past Medical History Cholangiocarcinoma Past Surgical History Denies other than recent port placement Reported Medications Reviewed in the EMR Allergies: Coded Allergies: No Known Allergies (Verified Allergy, Unknown, 09/10/17) Active Ordered Medications Reviewed in the EMR Family History Mother had some sort of colon cancer and had stomach ulcers and diabetes Father of suicide and sisters healthy Social History No tobacco or alcohol dependency, lives alone and is not working Physical Exam Vital Signs Vital Signs Date Time Temp Pulse Resp B/P (MAP) Pulse Ox O2 Delivery O2 Flow Rate FiO2 09/11/17 00:00 97.4 89 20 155/92 (113) 97 09/10/17 21:33 97.9 90 20 140/86 (104) 98 09/10/17 21:07 98.4 84 16 128/84 (99) 98 09/10/17 20:44 84 16 133/84 (100) 98 Room Air 09/10/17 19:06 97 Room Air 09/10/17 18:39 98.2 106 20 140/90 (107) 99 Physical Exam GENERAL: This is a well-nourished, well-developed patient, in no apparent distress. SKIN: No rashes, ecchymoses or lesions. Cool and dry. HEAD: Atraumatic. Normocephalic. No temporal or scalp tenderness. EYES: Pupils equal round and reactive. Extraocular motions intact. No scleral icterus. No injection or drainage. ENT: Nose without bleeding, purulent drainage or septal hematoma. Throat without erythema, tonsillar hypertrophy or exudate. Uvula midline. Airway patent. NECK: Trachea midline. No JVD or lymphadenopathy. Supple, nontender, no meningeal signs. CARDIOVASCULAR: Regular rate and rhythm without murmurs, gallops, or rubs. RESPIRATORY: Clear to auscultation. Breath sounds equal bilaterally. No wheezes , rales, or rhonchi. GASTROINTESTINAL: Abdomen soft, non-tender, nondistended. No hepato-splenomegaly , or palpable masses. No guarding. MUSCULOSKELETAL: Extremities without clubbing, cyanosis, or edema. No joint tenderness, effusion, or edema noted. No calf tenderness. Negative Homans sign bilaterally. NEUROLOGICAL: Awake and alert. Cranial nerves II through XII intact. Motor and sensory grossly within normal limits. Five out of 5 muscle strength in all muscle groups. Normal speech. Laboratory Laboratory Tests Test 09/10/17 19:03 09/11/17 07:04 White Blood Count 8.1 6.6 Red Blood Count 4.51 4.22 Hemoglobin 13.3 12.3 Hematocrit 39.6 37.6 Mean Corpuscular Volume 87.8 89.1 Mean Corpuscular Hemoglobin 29.4 29.1 Mean Corpuscular Hemoglobin Concent 33.5 32.6 Red Cell Distribution Width 12.6 12.7 Platelet Count 294 263 Mean Platelet Volume 7.0 7.0 Neutrophils (%) (Auto) 86.6 84.4 Lymphocytes (%) (Auto) 8.6 11.5 Monocytes (%) (Auto) 3.9 2.3 Eosinophils (%) (Auto) 0.4 1.1 Basophils (%) (Auto) 0.5 0.7 Neutrophils # (Auto) 7.1 5.5 Lymphocytes # (Auto) 0.7 0.8 Monocytes # (Auto) 0.3 0.2 Eosinophils # (Auto) 0.0 0.1 Basophils # (Auto) 0.0 0.0 CBC Comment DIFF FINAL DIFF FINAL Differential Comment Prothrombin Time 10.9 Prothromb Time International Ratio 1.0 Activated Partial Thromboplast Time 26.5 Blood Urea Nitrogen 8 8 Creatinine 0.73 0.58 Random Glucose 103 87 Calcium Level 8.9 8.3 Sodium Level 134 137 Potassium Level 3.6 3.7 Chloride Level 101 105 Carbon Dioxide Level 22.7 21.9 Anion Gap 10 10 Estimat Glomerular Filtration Rate 82 107 Total Protein 6.1 Albumin 2.6 Alkaline Phosphatase 493 Aspartate Amino Transf (AST/SGOT) 119 Alanine Aminotransferase (ALT/SGPT) 95 Total Bilirubin 0.9 Result Diagram: 09/11/1770309/11/17 0704 Imaging Last Impressions Abdomen X-Ray 09/10/17 0000 Signed Impressions: Service Date/Time: Sunday, September 10, 2017 19:29 - CONCLUSION: 1. No obstruction or free air. 2. Moderate stool in the right side of the colon. 3. Gallstones. MD Nicolas Busch VTE Risk Assessment Caprini VTE Risk Assessment: Mod/High Risk (score >= 2) Caprini Risk Assessment Model Point Value = 1 Point Value = 2 Point Value = 3 Point Value = 5 Age 41-60 Minor surgery BMI > 25 kg/m2 Swollen legs Varicose veins or History of unexplained or recurrent spontaneous Oral contraceptives or hormone replacement Sepsis (< 1 month) Serious lung disease, including pneumonia (< 1 month) Abnormal pulmonary function Acute myocardial infarction Congestive heart failure (< 1 month) History of inflammatory bowel disease Medical patient at bed rest Age 61-74 Arthroscopic surgery Major open surgery (> 45 min) Laparoscopic surgery (> 45 min) Malignancy Confined to bed (> 72 hours) Immobilizing plaster cast Central venous access Age >= 75 History of VTE Family history of VTE Factor V Leiden Prothrombin [id number] Lupus anticoagulant Anticardiolipin antibodies Elevated serum homocysteine Heparin-induced thrombocytopenia Other congenital or acquired thrombophilia Stroke (< 1 month) Elective arthroplasty Hip, pelvis, or leg fracture Acute spinal cord injury (< 1 month) Prophylaxis Regimen Total Risk Factor Score Risk Level Prophylaxis Regimen 0-1 Low Early ambulation 2 Moderate Order ONE of the following: *Sequential Compression Device (SCD) *Heparin 5000 units SQ BID 3-4 Higher Order ONE of the following medications: *Heparin 5000 units SQ TID *Enoxaparin/Lovenox 40 mg SQ daily (WT < 150 kg, CrCl > 30 mL/min) *Enoxaparin/Lovenox 30 mg SQ daily (WT < 150 kg, CrCl > 10-29 mL/min) *Enoxaparin/Lovenox 30 mg SQ BID (WT < 150 kg, CrCl > 30 mL/min) AND/OR *Sequential Compression Device (SCD) 5 or more Highest Order ONE of the following medications: *Heparin 5000 units SQ TID (Preferred with Epidurals) *Enoxaparin/Lovenox 40 mg SQ daily (WT < 150 kg, CrCl > 30 mL/min) *Enoxaparin/Lovenox 30 mg SQ daily (WT < 150 kg, CrCl > 10-29 mL/min) *Enoxaparin/Lovenox 30 mg SQ BID (WT < 150 kg, CrCl > 30 mL/min) AND *Sequential Compression Device (SCD) Assessment and Plan Problem List: (1) Chemotherapy-induced nausea ICD Code: R11.0 - Nausea; T45.1X5A - Adverse effect of antineoplastic and immunosuppressive drugs, initial encounter Plan: Started FOLFOX infusion on Sunday 09/09. Has had trouble over the weekend. Follows up with Dr. 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 with oncology Code Status Full code Discussed Condition With Patient Yarelis Sanchez MD Sep 11, 2017 09:13
[2017-09-11] MEDS ORDERED: PROM25TA10 PO (09:14)
--- NOTE | 2017-09-11 09:14 | HHI.DCPOC ---
Discharge Care Plan Diagnosis: (1) Chemotherapy-induced nausea Goals to Promote Your Health * To prevent worsening of your condition and complications * To maintain your health at the optimal level Directions to Meet Your Goals Take your medications as prescribed Follow your dietary instruction Follow activity as directed Keep your appointments as scheduled Take your immunizations and boosters as scheduled If your symptoms worsen call your PCP, if no PCP go to Urgent Care Center or Emergency Room Smoking is Dangerous to Your Health. Avoid second hand smoke Call the 24-hour hour crisis hotline for domestic abuse at Yarelis Sanchez MD Sep 11, 2017 09:14
[2017-09-11] MEDS: SODIUM CHLORIDE 0.9% FLUSH 10 ML FLUSH IV FLUSH SCH (09:15)
[2017-09-11] MEDS: DOCUSATE SODIUM 50 MG/SENNA 8.6 MG TAB PO SCH (09:15)
[2017-09-11] MEDS: PROMETHAZINE HCL 25 MG TAB PO SCH ×2 (09:41→15:34)
[2017-09-11] MEDS: ACETAMINOPHEN/HYDROcodone 325 MG/5 MG TAB PO PRN ×2 (09:46→15:37)
[2017-09-11 12:00] VITALS: BP 133/93; PULSE 90; RESP 16; TEMP 98.1; O2SAT 98
== END 2017-09-11 17:14 | disposition home or self-care (01) ==
LOC: PHED 18:34 → PHEDA 20:31 → PH3A 21:13
PROVIDERS: ADMIT Hospitalist; ATTEND Hospitalist
DX: T45.1X5A Adverse effect of antineoplastic and immunosuppressive drugs, initial encounter (principal); R11.2 Nausea with vomiting, unspecified; R53.1 Weakness; C22.1 Intrahepatic bile duct carcinoma; R42 Dizziness and giddiness; M25.551 Pain in right hip; K80.20 Calculus of gallbladder without cholecystitis without obstruction
CPT/HCPCS: 74020; 80048; 80053; 85025; 85610; 85730; 96361; 96374; 96375; 96376; 99285; G0378; J2270; J2405; J7030; Q0169

== ENCOUNTER 2017-12-21 09:46 | Day surgery (SDC) | payer OTHER ==
[~2017-12-21 09:46] MED LIST changes: +PROM25TA10 PO; -ZOFR4TAB PO
[2017-12-21] MEDS ORDERED: IOHEXOL 350 MG/ML 10 ML VIAL (for RAD DIAG) IVCONTRAST ONE (09:47)
[2017-12-21] MEDS ORDERED: DIATRIZOATE MEGLUM/DIATRIZOATE SOD 9 ML CUP PO ONE (11:15)
[2017-12-21] MEDS ORDERED: ALBUMIN 25% INJ 0 ML IV ONE (11:45)
[2017-12-21] MEDS ORDERED: LIDOCAINE HCL 1% 20 ML VIAL ONE (12:14)
[2017-12-21 12:15] VITALS: BP 112/79; PULSE 76; RESP 16; TEMP 97.6; O2SAT 97
[2017-12-21] MEDS ORDERED: ALBUMIN HUMAN 25% 50 GM IV ONE (12:15)
[2017-12-21 12:30] VITALS: BP 122/75; PULSE 78; RESP 16; O2SAT 96
--- NOTE | 2017-12-21 12:50 | RADRPT ---
EXAM DATE/TIME: 12/21/2017 10:32 [facility] COMPARISON: No previous studies available for comparison. INDICATIONS : Ascites. MEDICAL HISTORY : Hepatocellular carcinoma. SURGICAL HISTORY : Port placement. Cyst removal. ENCOUNTER: Initial ACUITY: 1 week PAIN SCORE: 4/10 LOCATION: Right lower quadrant FLUID: Total volume of 7300 cc of clear, yellow fluid was removed. Fluid was discarded. Paracentesis was therapeutic only. Post procedure scanning reveals no hematoma or other complication. TECHNIQUE: 1. Ultrasound guidance for abdominal paracentesis. 2. Paracentesis. The risks, benefits, and alternatives to ultrasound guided paracentesis were explained to the patient in detail including the risk of bleeding and infection. Written and verbal informed consent was obt ained. With the patient on the ultrasound table, ultrasound imaging was used to select the most appropriate approach for paracentesis. Overlying skin was prepped and draped in the usual sterile fashion and wi th a local anesthetic, a dermatotomy was made with an 11 blade scalpel. A 6 [place] [id number] ca theter was introduced into the peritoneal cavity and fluid was collected. The patient tolerated the procedure well and left the ultrasound suite in stable condition. CONCLUSION: Uncomplicated ultrasound guided paracentesis. Ned Borrero MD on December 21, 2017 at 12:48 Board Certified Radiologist. This report was verified electronically.
--- NOTE | 2017-12-21 15:25 | RADRPT ---
EXAM DATE/TIME: 12/21/2017 14:44 [facility] COMPARISON: No previous studies available for comparison. INDICATIONS : Short of breath, restaging evaluation. IV CONTRAST: 71 cc Omnipaque 350 (iohexol) IV RADIATION DOSE: 4.61 CTDIvol (mGy) ; Combined studies - Thorax/Abdomen/Pelvis MEDICAL HISTORY : Intrahepatic cholangio carcinoma. SURGICAL HISTORY : None. ENCOUNTER: Initial ACUITY: 1 day PAIN SCALE: 2/10 LOCATION: Bilateral cranial TECHNIQUE: Volumetric scanning of the chest was performed. Using automated exposure control and adjustment of t he mA and/or kV according to patient size, radiation dose was kept as low as reasonably achievable to obtain optimal diagnostic quality images. DICOM format image data is available electronically for review and comparison. Follow-up recommendations for detected pulmonary nodules are based at a minimum on nodule size and pa tient risk factors according to Fleischner Society Guidelines. FINDINGS: There is elevation of the right hemidiaphragm with some compressive atelectasis at the right lung bas e. Multiple previous subcentimeter nodules in the lungs are less apparent on the current examination and some are no longer visualized. There is no pleural or pericardial effusion. [id number] tip in cavoatrial junction. Upper abdomen reveals at least moderate ascites with a diffusely nodular liver. See abdomen CT for fi ndings below the diaphragm. CONCLUSION: Decrease in size and number of previous subcentimeter pulmonary nodules bilaterally. On current exam largest nodules measure about 3 mm in diameter. No new adenopathy or effusion. Angel Gloria MD on December 21, 2017 at 15:16 Board Certified Radiologist. This report was verified electronically.
--- NOTE | 2017-12-21 15:36 | RADRPT ---
EXAM DATE/TIME: 12/21/2017 14:44 [facility] COMPARISON: No previous studies available for comparison. INDICATIONS : Diffuse upper abdomen pain, restaging evaluation. IV CONTRAST: 71 cc Omnipaque 350 (iohexol) IV ORAL CONTRAST: No oral contrast ingested. RADIATION DOSE: 4.61 CTDIvol (mGy) ; Combined studies - Thorax/Abdomen/Pelvis MEDICAL HISTORY : Intrahepatic cholangio carcinoma. SURGICAL HISTORY : None. ENCOUNTER: Initial ACUITY: 1 day PAIN SCALE: 3/10 LOCATION: Bilateral upper quadrant TECHNIQUE: Volumetric scanning of the abdomen and pelvis was performed. Using automated exposure control and ad justment of the mA and/or kV according to patient size, radiation dose was kept as low as reasonably achievable to obtain optimal diagnostic quality images. DICOM format image data is available electro nically for review and comparison. FINDINGS: Comparison is October 20, 2017. Previously identified multiple hepatic nodules have generally decreas ed in size. Index nodule posterior right lobe now measures 13 mm compared with previous measurement o f about 17 mm. The liver is shrunken and nodular in appearance. There is a reported history of cholan giocarcinoma. Dilatation of the common bile duct to 13 mm is relatively stable compared with October 20. There is moderate ascites which is similar to the prior examination. No acute findings in the adrenal s, kidneys or pancreas. There is no bowel obstruction. No free air. Sclerotic bone lesions are relatively stable in size comp ared with the prior examination. There is colonic diverticulosis without evidence for diverticulitis. Again seen is cholelithiasis. CONCLUSION: 1. Decrease in size of hepatic metastatic disease compared with October 20. 2. Stable moderate to large ascites. Stable biliary ductal dilatation. 3. Stable size of metastatic bone lesions. Stable gallstones. 4. Improvement in previously described anterior metastatic peritoneal implants. 1. Angel Gloria MD on December 21, 2017 at 15:27 Board Certified Radiologist. This report was verified electronically.
== END 2017-12-21 15:20 | disposition home or self-care (01) ==
LOC: HRAD 09:46 → HRIP 09:49 → HRAD 15:20
PROVIDERS: ATTEND Internal Medicine Hematology & Oncology
DX: R18.8 Other ascites (principal); C22.0 Liver cell carcinoma; R06.02 Shortness of breath
CPT/HCPCS: 49083; 71260; 74177; 96365; P9047; Q9963; Q9967

== ENCOUNTER 2018-01-10 07:51 | Day surgery (SDC) | payer OTHER ==
[2018-01-10 08:14] VITALS: BP 121/92; PULSE 76; RESP 16; TEMP 97.6; O2SAT 94
--- NOTE | 2018-01-10 09:49 | RADRPT ---
EXAM DATE/TIME: 01/10/2018 08:15 [facility] COMPARISON: US GUIDED ABD PARACENTESIS, December 21, 2017, 10:32. INDICATIONS : Ascites. MEDICAL HISTORY : Hepatocellular carcinoma. SURGICAL HISTORY : Port placement. Cyst removal. ENCOUNTER: Initial ACUITY: 2 weeks PAIN SCORE: 4/10 LOCATION: Right lower quadrant FLUID: Total volume of 9600 cc of cloudy, yellow fluid was removed. Fluid was discarded. Paracentesis was therapeutic only. Post procedure scanning reveals no hematoma or other complication. TECHNIQUE: 1. Ultrasound guidance for abdominal paracentesis. 2. Paracentesis. The risks, benefits, and alternatives to ultrasound guided paracentesis were explained to the patient in detail including the risk of bleeding and infection. Written and verbal informed consent was obt ained. With the patient on the ultrasound table, ultrasound imaging was used to select the most appropriate approach for paracentesis. Overlying skin was prepped and draped in the usual sterile fashion and wi th a local anesthetic, a dermatotomy was made with an 11 blade scalpel. A 6 [place] [id number] ca theter was introduced into the peritoneal cavity and fluid was collected. The patient tolerated the procedure well and left the ultrasound suite in stable condition. CONCLUSION: Uncomplicated ultrasound guided paracentesis. Bhanu Nair MD on January 10, 2018 at 9:47 Board Certified Radiologist. This report was verified electronically.
[2018-01-10 09:50] VITALS: BP 106/77; PULSE 75; RESP 18; TEMP 97.4; O2SAT 98
[2018-01-10] MEDS ORDERED: LIDOCAINE HCL 1% PF 10 ML VIAL ONE (09:51)
[2018-01-10] MEDS ORDERED: ALBUMIN HUMAN 25% 50GM-W/12.5GM FOR 62.5GM IV ONE (10:00)
[2018-01-10] MEDS ORDERED: ALBUMIN HUMAN 25% 12.5GM-W/50GM FOR 62.5GM IV ONE (10:00)
== END 2018-01-10 12:05 | disposition home or self-care (01) ==
LOC: HRAD 07:51 → HRIP 07:54 → HRAD 12:05
PROVIDERS: ATTEND Internal Medicine Hematology & Oncology
DX: R18.8 Other ascites (principal); C22.0 Liver cell carcinoma; C22.1 Intrahepatic bile duct carcinoma
CPT/HCPCS: 49083; 96365; C1729; J1642; P9047

== ENCOUNTER 2018-02-01 09:15 | Day surgery (SDC) | payer OTHER ==
[~2018-02-01 09:15] MED LIST changes: +ALBUMIN 25% INJ 0 ML IV ONE
[2018-02-01 09:41] LABS: AUTOMATED NEUTROPHIL # 4.3 TH/MM3 (1.8-7.7); BASOPHIL # 0.1 TH/MM3 (0-0.2); EOSINOPHIL # 0.1 TH/MM3 (0-0.4); EOSINOPHIL % 0.9 % (0.0-4.0); HEMATOCRIT 43.8 % (35.0-46.0); HEMOGLOBIN 14.9 GM/DL (11.6-15.3); LYMPH % 18.7 % (9.0-44.0); LYMPHOCYTE # 1.1 TH/MM3 (1.0-4.8); MEAN CELL VOLUME 96.8 FL (80.0-100.0); MEAN CORPUSCULAR HEMOGLOBIN 32.9 PG (27.0-34.0); MEAN PLATELET VOLUME 7.4 FL (7.0-11.0); MONO % 7.7 % (0.0-8.0); MONOCYTE # 0.5 TH/MM3 (0-0.9); NEUT % 71.7 % (16.0-70.0); PLATELET COUNT 314 TH/MM3 (150-450); RED BLOOD COUNT 4.53 MIL/MM3 (4.00-5.30); RED CELL DISTRIBUTION WIDTH 15.9 % (11.6-17.2)
[2018-02-01 10:48] LABS: ALT (GPT) 30 U/L (10-53)
[2018-02-01 10:50] LABS: ALBUMIN 2.9 GM/DL (3.4-5.0); ALKALINE PHOSPHATASE 371 U/L (45-117); BICARBONATE 24.2 MEQ/L (21.0-32.0); BLOOD UREA NITROGEN 8 MG/DL (7-18); CALCIUM 10.1 MG/DL (8.5-10.1); CHLORIDE 100 MEQ/L (98-107); CREATININE 0.95 MG/DL (0.50-1.00); GLOMERULAR FILTRATION RATE 60 ML/MIN (>89); GLUCOSE,FASTING 82 MG/DL (74-99); SODIUM (NA) 134 MEQ/L (136-145); TOTAL BILIRUBIN ADULT 0.7 MG/DL (0.2-1.0); TOTAL PROTEIN 7.1 GM/DL (6.4-8.2)
[2018-02-01 10:52] LABS: AST (GOT) 55 U/L (15-37)
[2018-02-01 11:46] VITALS: BP 122/82; PULSE 72; RESP 18; TEMP 97.4; O2SAT 99
[2018-02-01] MEDS ORDERED: LIDOCAINE HCL 1% 20 ML VIAL ONE (12:47)
[2018-02-01 13:25] VITALS: BP 91/61; PULSE 73; RESP 18; TEMP 97.5; O2SAT 99
--- NOTE | 2018-02-01 13:27 | RADRPT ---
EXAM DATE/TIME: 02/01/2018 11:48 [facility] COMPARISON: US GUIDED ABD PARACENTESIS, January 10, 2018, 8:15. INDICATIONS : Ascites MEDICAL HISTORY : Hepatocellular Cancer. SURGICAL HISTORY : Port placement. Cyst removal. ENCOUNTER: Subsequent ACUITY: 2 weeks PAIN SCORE: 1/10 LOCATION: Right lower quadrant FLUID: Total volume of 8,400 cc of clear, yellow fluid was removed. Fluid was discarded. Paracentesis was therapeutic only. Post procedure scanning reveals no hematoma or other complication. TECHNIQUE: 1. Ultrasound guidance for abdominal paracentesis. 2. Paracentesis. The risks, benefits, and alternatives to ultrasound guided paracentesis were explained to the patient in detail including the risk of bleeding and infection. Written and verbal informed consent was obt ained. With the patient on the ultrasound table, ultrasound imaging was used to select the most appropriate approach for paracentesis. Overlying skin was prepped and draped in the usual sterile fashion and wi th a local anesthetic, a dermatotomy was made with an 11 blade scalpel. A 6 Maldivian [id number] ca theter was introduced into the peritoneal cavity and fluid was collected. The patient tolerated the procedure well and left the ultrasound suite in stable condition. CONCLUSION: Successful ultrasound-guided paracentesis. Ned Borrero MD on February 01, 2018 at 13:22 Board Certified Radiologist. This report was verified electronically.
[2018-02-01] MEDS ORDERED: ALBUMIN HUMAN 25% 50 GM IV ONE (13:45)
[2018-02-01 13:50] VITALS: BP 108/74
[2018-02-01 15:00] VITALS: BP 96/53; PULSE 88; RESP 20; TEMP 98.6; O2SAT 98
== END 2018-02-01 15:00 | disposition home or self-care (01) ==
LOC: HRAD 09:15 → HRIP 09:24 → HRAD 15:00
PROVIDERS: ATTEND Internal Medicine Hematology & Oncology
DX: R18.8 Other ascites (principal); C22.0 Liver cell carcinoma
CPT/HCPCS: 36415; 49083; 80053; 85025; 85610; 85730; 96365; C1729; P9047

== ENCOUNTER 2018-02-21 08:29 | Day surgery (SDC) | payer OTHER ==
[~2018-02-21 08:29] MED LIST changes: -ALBUMIN 25% INJ 0 ML IV ONE
[2018-02-21 09:24] LABS: AUTOMATED NEUTROPHIL # 4.2 TH/MM3 (1.8-7.7); BASOPHIL % 0.6 % (0.0-2.0); EOSINOPHIL # 0.1 TH/MM3 (0-0.4); EOSINOPHIL % 1.8 % (0.0-4.0); HEMATOCRIT 44.8 % (35.0-46.0); HEMOGLOBIN 15.2 GM/DL (11.6-15.3); LYMPH % 15.4 % (9.0-44.0); LYMPHOCYTE # 0.8 TH/MM3 (1.0-4.8); MEAN CELL VOLUME 96.7 FL (80.0-100.0); MEAN CORPUSCULAR HEMOGLOBIN 32.8 PG (27.0-34.0); MEAN CORPUSCULAR HGB CONC 33.9 % (32.0-36.0); MEAN PLATELET VOLUME 8.1 FL (7.0-11.0); MONO % 6.4 % (0.0-8.0); MONOCYTE # 0.4 TH/MM3 (0-0.9); NEUT % 75.8 % (16.0-70.0); PLATELET COUNT 227 TH/MM3 (150-450); RED BLOOD COUNT 4.63 MIL/MM3 (4.00-5.30); RED CELL DISTRIBUTION WIDTH 16.3 % (11.6-17.2); WHITE BLOOD COUNT 5.5 TH/MM3 (4.0-11.0)
[2018-02-21 10:47] LABS: PROTHROMBIN TIME - PATIENT 9.8 SEC (9.8-11.6)
[2018-02-21 11:13] VITALS: BP 101/78; PULSE 76; RESP 16; TEMP 98.2; O2SAT 99
[2018-02-21 12:55] VITALS: BP 100/79; PULSE 75; RESP 18; TEMP 97.6; O2SAT 99
[2018-02-21 13:00] VITALS: BP 100/79; PULSE 75; RESP 18; TEMP 97.6; O2SAT 99
[2018-02-21 13:25] VITALS: BP 100/79; PULSE 89; RESP 16; O2SAT 89
[2018-02-21] MEDS ORDERED: ALBUMIN HUMAN 25% 50GM-W/12.5GM FOR 62.5GM IV ONE (13:30)
[2018-02-21] MEDS ORDERED: ALBUMIN HUMAN 25% 12.5GM-W/50GM FOR 62.5GM IV ONE (13:30)
[2018-02-21] MEDS ORDERED: LIDOCAINE HCL 1% 20 ML VIAL ONE (14:18)
--- NOTE | 2018-02-21 15:08 | RADRPT ---
EXAM DATE/TIME: 02/21/2018 10:53 [facility] COMPARISON: EXTERNAL COMPARISON: US GUIDED ABD PARACENTESIS, February 01, 2018, 11:48. [facility], PET/CT TUMOR, Sep 13 2017, Por t [facility], US ABDOMEN GALLBLADDER, July 21, 2017. INDICATIONS : Ascites. MEDICAL HISTORY : Hepatocarcinoma. Ascites. SURGICAL HISTORY : Port placement. Cyst removal. Paracentesis. Chemotherapy. ENCOUNTER: Subsequent ACUITY: 3 weeks PAIN SCORE: 0/10 LOCATION: Right lower quadrant FLUID: Total volume of 9,100 cc of cloudy, yellow fluid was removed. Fluid was discarded. Paracentesis was therapeutic only. Post procedure scanning reveals no hematoma or other complication. TECHNIQUE: 1. Ultrasound guidance for abdominal paracentesis. 2. Paracentesis. The risks, benefits, and alternatives to ultrasound guided paracentesis were explained to the patient in detail including the risk of bleeding and infection. Written and verbal informed consent was obt ained. With the patient on the ultrasound table, ultrasound imaging was used to select the most appropriate approach for paracentesis. Overlying skin was prepped and draped in the usual sterile fashion and wi th a local anesthetic, a dermatotomy was made with an 11 blade scalpel. A 6 Kenyan [id number]-[id number] ca theter was introduced into the peritoneal cavity and fluid was collected. The patient tolerated the procedure well and left the ultrasound suite in stable condition. CONCLUSION: Uncomplicated ultrasound guided paracentesis. Fortino Barnes MD on February 21, 2018 at 15:05 Board Certified Radiologist. This report was verified electronically.
[2018-02-21] MEDS ORDERED: IMPLANTED VASCULAR ACCESS PORT - SODIUM CHLORIDE FLUSH IV FLUSH SCH (15:15)
[2018-02-21] MEDS ORDERED: IMPLANTED VASCULAR ACCESS PORT - SODIUM CHLORIDE FLUSH PRN IV FLUSH (15:15)
== END 2018-02-21 16:07 | disposition home or self-care (01) ==
LOC: HRAD 08:29 → HRIP 10:02 → HRAD 16:07
PROVIDERS: ATTEND Internal Medicine Hematology & Oncology
DX: R18.8 Other ascites (principal); C22.1 Intrahepatic bile duct carcinoma; Z01.818 Encounter for other preprocedural examination
CPT/HCPCS: 36415; 49083; 85025; 85610; 85730; 96365; C1729; J1642; P9047

== ENCOUNTER 2018-03-24 09:54 | Day surgery (SDC) | payer OTHER ==
[2018-03-24 10:18] VITALS: BP 122/98; PULSE 78; RESP 16; TEMP 97.3; O2SAT 96
[2018-03-24] MEDS ORDERED: ALBUMIN 25% INJ 0 ML IV ONE (11:20)
[2018-03-24 12:20] VITALS: BP 92/68; PULSE 80; RESP 18; TEMP 96; O2SAT 99
[2018-03-24] MEDS ORDERED: ALBUMIN HUMAN 25% 50 GM IV ONE (12:30)
[2018-03-24] MEDS ORDERED: ALBUMIN HUMAN 25% 12.5GM-W/25GM FOR 37.5GM IV ONE (12:30)
[2018-03-24] MEDS ORDERED: ALBUMIN HUMAN 25% 25GM-W/12.5GM FOR 37.5GM IV ONE (12:30)
[2018-03-24 12:35] VITALS: BP 97/75; PULSE 77; RESP 19; O2SAT 98
[2018-03-24] MEDS ORDERED: SODIUM CHLORIDE 0.9% FLUSH 10 ML FLUSH IV FLUSH PRN (12:45)
--- NOTE | 2018-03-24 13:07 | RADRPT ---
EXAM DATE: 03/24/2018 12:42 PM EDT AGE/SEX: 57 years / Female INDICATIONS: Ascites. CLINICAL DATA: This is the patient's subsequent encounter. Patient reports that signs and symptoms h ave been present for 1 month and indicates a pain score of 2/10. MEDICAL/SURGICAL HISTORY: . Intrahepatic cholangiocarcinoma. Hepatic cirrhosis. Chemotherapy. . Liver biopsy. Infusion port placement. Paracentesis. COMPARISON: [facility] [place] GUIDED ABD PARACENTESIS, 02/21/2018. . FLUID: Total volume of 8,300 cc of cloudy, yellow fluid was removed. Fluid was discarded. Paracentesis was t herapeutic only. . . TECHNIQUE: Ultrasound guidance for abdominal paracentesis. Paracentesis. The risks, benefits, and alternatives to ultrasound guided paracentesis were explained to the patient in detail including the risk of bleeding and infection. Written and verbal informed consent was obt ained. With the patient on the ultrasound table, ultrasound imaging was used to select the most appropriate approach for paracentesis. Overlying skin was prepped and draped in the usual sterile fashion and wi th a local anesthetic, a dermatotomy was made with an 11 blade scalpel. A 6 Fijian [id number]-T-[id number] ca theter was introduced into the peritoneal cavity and fluid was collected. Post procedure scanning reveals no hematoma or other complication. The patient tolerated the procedu re well and left the ultrasound suite in stable condition. FINDINGS: Successful ultrasound-guided paracentesis was performed as described above. CONCLUSION: 1. Successful ultrasound-guided paracentesis. Electronically signed by: Ned Borrero MD 03/24/2018 1:05 PM EDT
== END 2018-03-24 14:00 | disposition home or self-care (01) ==
LOC: HRAD 09:54 → HRIP 09:55 → HRAD 14:00
PROVIDERS: ATTEND Internal Medicine Hematology & Oncology
DX: R18.8 Other ascites (principal); C22.1 Intrahepatic bile duct carcinoma; K74.60 Unspecified cirrhosis of liver
CPT/HCPCS: 49083; 96365; C1729; J1642; P9047